=== PATIENT | female | born 1960 | race Caucasian/White ===

== ENCOUNTER 2020-07-03 08:00 | Outpatient (CLI) | payer MEDICARE, MEDICAID, SELFPAY ==
--- NOTE | 2020-07-03 08:09 | ECG_ITS ---
[facility] Test Date: 2020-07-03 Pat Name: Loyda Roldan Department: Room: Gender: Female Multigraph Operator: : 1960 Requested By: Ericka Soto Order Number: [id number] Zimmerman MD: Lori Abbott M.D. Interpretive Statements NAME OF STUDY: EXERCISE SESTAMIBI STRESS TEST INDICATION: Coronary Artery Disease, PROCEDURE: The baseline electrocardiogram showed normal sinus rhythm with some nonspecific T wave changes.. At the baseline, the patient's blood pressure was 135/81 mm Hg with a heart rate of 87. The patient exercised for 7 minutes on a standard Davion protocol. Patient attained a maximum heart rate of 154 beats per minute(94%) of the maximum predicted heart rate) with a blood pressure at the peak exercise -was not obtained. The EKG at the peak exercise revealed nonspecific ST-T changes. Patient did not have any chest pain or any significant arrhythmis with the exercise Sestamibi was injected 1 minute prior to the peak exercise During the recovery phase, there were no new changes. Blood pressure at the end of the recovery phase was 141/71 mm Hg with a heart rate of 97 per minute. CONCLUSION: 1. Nonspecific EKG changes with the [treadmill exercise 2. No exercise-induced chest pain or cardiac arrhythmia 3. Fair exercise tolerance, attained a maximum of 10.2 METs 4. Sestamibi/Sestamibi perfusion results pending; see separate report. Electronically Signed On 07-05-2020 16:03:35 CDT by Lori Abbott M.D. [id number]
--- NOTE | 2020-07-03 08:09 | NMCV_ITS ---
NM estiven perf SPECT r/s* [id number] Jamar Loyda Age: 59 Gender: F : 1960 Exam Date: 07/03/2020 09:10 Ordering Phys: Ericka Wolfe MD Technologist: DEANDRE Hernandez Exam Location: [facility] Indications: CAD STRESS TEST Please see separate stress test report in [facility] for full findings IMAGE PROTOCOL Rest/Stress 1 Exercise Day Radiopharmaceutical Dose (mCi) Administration Site Administered by Rest: Tc-99m 10.7 IV DEANDRE Hernandez Sestamibi Stress:Tc-99m 32.5 IV DEANDRE Gregory Sestamibi Rest: 03-Jul-2020 60 Discovery 630 Stress: 03-Jul-2020 45 Discovery 630 Radiopharmaceutical was injected at 85 % maximum heart rate. SPECT RESULTS Technical Quality: Good Raw Data Analysis: Breast attenuation Image Corrections: No attenuation or motion correction applied Summed Stress Score: 0 Summed Rest Score: 0 Summed Difference Score: 0 PERFUSION FINDINGS Fairly uniform myocardial tracer uptake. No significant perfusion abnormalities are noted FUNCTIONAL RESULTS (calculated via Gated SPECT) Stress Image LV EF (%): 75 Stress EDV (mL):60 TID: 0.88 Stress ESV (mL):15 FUNCTIONAL FINDINGS: Segmental wall motion analysis revealing no gross wall motion normalities. IMPRESSIONS 1. Myocardial perfusion imaging revealing uniform tracer uptake with no significant perfusion abnormalities 2. Normal LV ejection fraction 75%. 3. LV wall motion analysis revealing no gross wall motion normalities. 4. Normal LV volume. No significant coronary ischemia, based on the above findings Dr Lori Abbott MD FACC (Electronically Signed) Final Date: 03 July 2020 23:23 S
[2020-07-03 09:57] VITALS: BMI 32.0
[2020-07-03 10:19] VITALS: BP 141/71; PULSE 97
== END 2020-07-03 08:01 | disposition home or self-care (01) ==
LOC: CDL 08:06
PROVIDERS: PCP Family Medicine; Visit Provider Family Medicine
DX: I25.10 Atherosclerotic heart disease of native coronary artery without angina pectoris (principal)
CPT/HCPCS: 78452; 93017; A9500

== ENCOUNTER 2021-01-29 06:27 | Day surgery (SDC) | payer MEDICARE, MEDICAID, SELFPAY ==
[2021-01-27 10:53] VITALS: BMI 32.0
--- NOTE | 2021-01-29 06:49 | W.PM.OPSUD ---
Surgery/Procedure H&P Update DATE OF PROCEDURE: January 29, 2021 DATE H&P PERFORMED: 12/30/20 H&P UPDATE INFORMATION: I have reviewed H&P completed within last 30 days, I have examined patient prior to procedure and Changes to prior documentation as noted here CHANGES TO PREVIOUS DOCUMENTATION: Patient mentions today that she had a colonoscopy before 10 years and was reported as normal and an EGD before 4 years and was told that she has a hiatal hernia. PREOP DIAGNOSIS: Screening colonoscopy and melena PRIMARY INDICATION FOR PROCEDURE: THE SAME PLANNED PROCEDURE: Operation Date: 01/29/21 07:30 Proposed Procedures p EGD/colon 86230 [id number] K27.9 K92.1(Not Applicable) - Naif Peace MD s Colonoscopy(Not Applicable) - Naif Peace MD
[2021-01-29 06:51] VITALS: BP 120/84; PULSE 72; RESP 18; TEMP 36.2; O2SAT 98
[2021-01-29] MEDS: sodium chloride 0.9% 1,000 ML 30 ML IV (07:02)
[2021-01-29 07:06] LABS: Glucose Point of Care 134 mg/dL (70-110)
--- NOTE | 2021-01-29 07:23 | ANES.PREANE2 ---
Pre-Anesthetic Assessment Pre-Anesthetic Assessment: Height/Weight: Height 1.57 m Weight 79.379 kg Temp Pulse Resp BP Pulse Ox 97.1 F L 72 18 120/84 98 01/29/21 06:51 01/29/21 06:51 01/29/21 06:51 01/29/21 06:51 01/29/21 06:51 Preop Diagnosis: Screening colonoscopy and melena Proposed Procedure: Operation Date: 01/29/21 07:30 Proposed Procedures p EGD/colon [id number] K27.9 K92.1(Not Applicable) - Naif Peace MD s Colonoscopy(Not Applicable) - Naif Peace MD Last intake: Intake Last Liquid Date 01/28/21 Last Solid Date 01/27/21 Social: Social History: Tobacco and No alcohol Packs per day: 10/06 Exam: Pre-Anes Outpt Exam: alert Airway: Submandibular: WNL Cervical ROM: WNL MP: 4 Dentition: False Pulmonary: Pulmonary: Sleep apnea Comments: does not use cpap CV/HEM: CV/HEM: CAD and PR Comments: cabg 2007 : : None reported Hepatic: Hepatic: None reported GI: GI: GERD, Hiatus hernia and PUD Metabolic: Metabolic: DM, Hyperlipidemia and Morbid obesity Musc/skel: Musc/skel: OA/DJD Neuropsych: Neuropsych: Anxiety and Depression Anesthetic Plan: ASA status: 3 Anesthesia: Anesthesia Evaluation and MAC Risk of > 500 ml blood loss (7ml/kg in children): No Meds/Allergies Current Medications: Current Medications Generic Name Dose Route Start Last Admin Trade Name Freq PRN Reason Stop Dose Admin Sodium Chloride 1,000 mls @ 30 ml s/hr 01/29/21 06:45 01/29/21 07:02 Sodium Chloride 0.9% IV 01/30/21 06:44 30 mls/hr .Q24H CONNOR Administration PFSH Anesthesia PFSH: Medical History (Updated 01/29/21 @ 07:22 by Naif Peace MD) Colon polyp Data Anesthesia Other Labs: Laboratory Results - last 48 hr 01/29/21 07:01 POC Glucose 134 H Cardiac Studies: No Data to Display
[2021-01-29 08:02] VITALS: BP 127/74; PULSE 64; RESP 16; TEMP 36.4; O2SAT 91
--- NOTE | 2021-01-29 13:12 | ANE.PACU2 ---
Inpatient post-anesthesia follow up: Airway intact: Yes Vital signs: Temperature 97.5 F Pulse Rate 64 Respiratory Rate 16 Blood Pressure 127/74 Pulse Oximetry 91 Oxygen Delivery Me thod Room Air Oxygen Flow Rate Fraction of Inspir ed Oxygen Hydration adequate: Yes Nausea and vomiting: No Pain level: 2 Mental status: Baseline
[2021-01-30 06:47] LABS: H. Pylori / CLO Test Negative
== END 2021-01-29 08:50 | disposition home or self-care (01) ==
PROVIDERS: PCP Family Medicine; Visit Provider Surgery
PROC: 0DJD8ZZ Inspection of Lower Intestinal Tract, Via Natural or Artificial Opening Endoscopic (ICD-10-PCS; CPT 45378; 2021-01-29 07:30)
PROC: 0DJ08ZZ Inspection of Upper Intestinal Tract, Via Natural or Artificial Opening Endoscopic (ICD-10-PCS; CPT 43235; 2021-01-29 07:30)
DX: K92.1 Melena (principal); K21.00 Gastro-esophageal reflux disease with esophagitis, without bleeding; K29.70 Gastritis, unspecified, without bleeding; F17.210 Nicotine dependence, cigarettes, uncomplicated; I25.10 Atherosclerotic heart disease of native coronary artery without angina pectoris; I25.2 Old myocardial infarction; Z95.1 Presence of aortocoronary bypass graft; Z87.11 Personal history of peptic ulcer disease; E78.5 Hyperlipidemia, unspecified; E66.01 Morbid (severe) obesity due to excess calories; Z68.32 Body mass index [BMI] 32.0-32.9, adult; M19.90 Unspecified osteoarthritis, unspecified site; F41.9 Anxiety disorder, unspecified; F32.9 Major depressive disorder, single episode, unspecified
CPT/HCPCS: 36416; 43239; 45378; 82962; 87077; 96360; 96361; J2704; J7030

== ENCOUNTER 2021-06-23 08:32 | Outpatient (CLI) | payer MEDICARE, MEDICAID, SELFPAY ==
--- NOTE | 2021-06-23 08:48 | MM_ITS ---
WS: [id number] BILATERAL SCREENING DIGITAL MAMMOGRAM WITH CAD HISTORY: SCREENING COMPARISON: 07/05/2014 and 08/18/2012 Bilateral CC and MLO views submitted. Computer aided detection analyzed. Breast composition: There are scattered areas of fibroglandular density. No suspicious masses, microc alcifications or architectural distortion. Benign lymph node upper outer quadrant LEFT breast is stab le. MM/[place] [id number] IMPRESSION: BI-RADS: 2-Benign FOLLOW UP: 1 Year Follow-up
== END 2021-06-23 08:33 | disposition home or self-care (01) ==
LOC: RADSHAW 08:36
PROVIDERS: PCP Family Medicine; Visit Provider Family Medicine
DX: Z12.31 Encounter for screening mammogram for malignant neoplasm of breast (principal)
CPT/HCPCS: 77067

== ENCOUNTER 2023-10-01 08:10 | Outpatient (CLI) | payer MEDICARE, MEDICAID, SELFPAY ==
--- NOTE | 2023-10-01 08:19 | MM_ITS ---
WS: [id number] BILATERAL 3D TOMOSYNTHESIS DIGITAL SCREENING MAMMOGRAPHY WITH CAD CLINICAL INFORMATION: SCREENING HISTORY: Screening mammogram. No current complaints. COMPARISON: 2020 TECHNIQUE: Bilateral CC and MLO views. FINDINGS: Scattered fibroglandular densities bilaterally. No suspicious focal mass, asymmetry, calcifications, or architectural distortion. No evidence of malignancy. Punctate and lucent centered calcifications. IMPRESSION: MM/[place] [id number] BI-RADS: 2-Benign FOLLOW UP: 1 Year Follow-up Recommend return to annual screening mammography.
== END 2023-10-01 08:11 | disposition home or self-care (01) ==
LOC: RAD 08:11
PROVIDERS: PCP Family Medicine; Visit Provider Family Medicine
DX: Z12.31 Encounter for screening mammogram for malignant neoplasm of breast (principal)
CPT/HCPCS: 77063; 77067

== ENCOUNTER 2024-05-11 09:07 | Outpatient (CLI) | payer MEDICARE, MEDICAID, SELFPAY ==
--- NOTE | 2024-05-11 09:13 | US_ITS ---
WS: [id number] RIGHT UPPER QUADRANT ULTRASOUND HISTORY: RUQ PAIN COMPARISON: 10/05/2013 Liver: 12.4 cm in length. Normal size liver and echogenicity. No bile duct dilatation or mass. Portal Vein: Normal hepatopetal flow with monophasic waveform. Gallbladder: Prior cholecystectomy. CBD: 0.5 cm Pancreas: Completely obscured. Right kidney: 8.5 cm in length. Low normal size kidney. No obstruction or mass. Aorta and IVC: Not visualized. No ascites. US/US abdomen limited [id number] IMPRESSION: 1. Technically limited and difficult RIGHT upper quadrant ultrasound evaluatio n due to body habitus. 2. Prior cholecystectomy. 3. Negative liver. 4. No bile duct dilatation.
== END 2024-05-11 09:08 | disposition home or self-care (01) ==
LOC: RAD 09:07
PROVIDERS: PCP Family Medicine; Visit Provider Family Medicine
DX: R10.11 Right upper quadrant pain (principal); Z98.890 Other specified postprocedural states
CPT/HCPCS: 76705

== ENCOUNTER 2024-05-24 07:34 | Outpatient (CLI) | payer MEDICARE, MEDICAID, SELFPAY ==
--- NOTE | 2024-05-24 07:42 | CT_ITS ---
WS: [id number] CT ABDOMEN AND PELVIS WITH CONTRAST HISTORY: RUQ PAIN/HX:CHOLECYSTECTOMY TECHNIQUE: Imaging performed of the abdomen and pelvis with IV contrast. Single phase imaging of the abdomen. Coronal and sagittal reformats are submitted. All CT scans at [facility] use at [address] one of these dose optimization techniques: automated exposure control; mA and/or kV adjustment per patient size (includes targeted exams where dose is matched to clinical indication); or iterative re construction. IV CONTRAST: Omnipaque 350; 100 mL IV. Oral contrast: Yes. DLP: 398.52 mGy.cm COMPARISON: 10/04/2018, 05/11/2024 Lower thorax: Lung bases are clear. Heart is normal size. No hiatal hernia. Liver/biliary system: Normal size with no intrahepatic dilatation. There is a large calcified density abutting the inferomedial RIGHT lobe of the liver which has been present since at least 2019. Normal portal vein. Gallbladder: Status post cholecystectomy. Pancreas: Normal size pancreas and pancreatic duct. No adjacent inflammation. Spleen: Normal size spleen. No mass or infarct. Adrenal glands: RIGHT adrenal myelolipoma measures 2.7 x 2.9 cm and is stable. Negative LEFT adrenal gland. Right kidney: Normal. Left kidney: Normal. Aorta: Moderate atherosclerosis with no aneurysm. Scattered atherosclerotic plaque with luminal throm bus. Mild stenosis distal aorta. Calcification continues into the common iliac arteries. Calcified pl aque at the origin of the SMA and celiac axis. Mild component of stenosis at the SMA. Stenosis has pr ogressed since 2019 at the SMA origin. Lymphadenopathy: None. Free fluid: None. GI tract: Stomach is markedly distended with oral contrast. There is no small bowel obstruction. Norm al appendix. Slight increased fluid in the ascending colon. No colitis. Minimal diverticular disease. Abdominal wall: Unremarkable abdominal wall. No hernia. Pelvis: Prior hysterectomy. No free fluid or adenopathy. Minimally distended urinary bladder. Bones: No destructive bone lesions. CT/CT abdomen pelvis w con* [id number] IMPRESSION: 1. Prior cholecystectomy. 2. No intrahepatic duct dilatation. 3. Long-term stability dense calcification along the inferior medial RIGHT lob e of the liver. 4. Normal appendix. 5. Moderate atherosclerosis aorta with a component of stenosis which has progr essed since 2019 at the base of the SMA. Patient is at risk for mild GI ischemi a. 6. No ascites or adenopathy. 7. RIGHT adrenal myelolipoma. Stable since 2019.
[2024-05-24] MEDS: iohexol 350 mg/mL 500 mL Btl (per mL) PO (09:06)
[2024-05-24] MEDS: iohexol 350 mg/mL 500 mL Btl (per mL) IV (09:06)
== END 2024-05-24 07:35 | disposition home or self-care (01) ==
LOC: RAD 07:34
PROVIDERS: PCP Family Medicine; Visit Provider Family Medicine
DX: R10.11 Right upper quadrant pain (principal); D35.01 Benign neoplasm of right adrenal gland; K76.89 Other specified diseases of liver; I70.0 Atherosclerosis of aorta; I70.8 Atherosclerosis of other arteries; Z90.49 Acquired absence of other specified parts of digestive tract
CPT/HCPCS: 74177; Q9967

== ENCOUNTER 2024-06-08 07:27 | Outpatient (CLI) | payer MEDICARE, MEDICAID, SELFPAY ==
--- NOTE | 2024-06-08 07:31 | CT_ITS ---
WS: [id number] CT ANGIOGRAPHY abdomen and pelvis HISTORY: ATHEROSCLEROSIS OF AORTA/ABD PAIN TECHNIQUE: CT angiogram is performed during IV injection. Reformation images reviewed. All CT scans a [facility] use at least one of these dose optimization techniques: automated exposure contro l; mA and/or kV adjustment per patient size (includes targeted exams where dose is matched to clinica l indication); or iterative reconstruction. CONTRAST: Omnipaque 350; 100 mL IV. DLP: 410.70 mGy.cm COMPARISON: 05/24/2024, 10/04/2018 Lung bases are clear. Normal size heart. Abdominal aorta: Mild diffuse atherosclerotic plaque throughout the aorta. Focal areas of intimal thi ckening are also identified. Saccular aneurysm in the infrarenal aorta. There is very mild anterior b ulging of the aorta but the diameter of the aorta still remains normal at 2.0 cm. Extensive atheroscl erotic plaque continues to the aortic bifurcation. Atherosclerotic plaque into the iliac arteries. No high-grade stenosis or occlusion. Very mild atherosclerotic plaque at the origin of the celiac axis. Gastric and splenic arteries are n ormal. Calcification at the origin of the SMA. The stenosis is not as significant as seen on the prio r CT. KEYANA is still patent. Prior cholecystectomy. Early enhancement of the liver and spleen, pancreas and gallbladder are negati ve. Common bile duct is normal size. There is a previously described calcification along the RIGHT he patic lobe. Kidneys are enhancing normally. No renal obstruction. Stable RIGHT adrenal myelolipoma. N egative LEFT adrenal gland. No GI tract obstruction. Normal appendix. No adenopathy or ascites. Negative urinary bladder. Mild an terior wedging of T12. No destructive bone lesions. CT/CT angio abdomen pelvis [id number] IMPRESSION: 1. Moderate atherosclerosis abdominal aorta. There is a very small saccular an eurysm in the infrarenal aorta. Mild bulging of the anterior wall of the aorta. 2. Small amount of plaque at the origins of the celiac axis and SMA. The steno sis at the SMA is not as great as previously noted on the CT from 05/24/2024. CT angiogram evaluation demonstrates stenosis of approximately 30 to 40%. There i s still good arterial flow noted distal to the origin of the SMA. 3. Stable RIGHT adrenal myolipoma. 4. No ischemic changes in the GI tract.
[2024-06-08] MEDS: iohexol 350 mg/mL 500 mL Btl (per mL) IV (08:41)
== END 2024-06-08 07:28 | disposition home or self-care (01) ==
LOC: RAD 07:27
PROVIDERS: PCP Family Medicine; Visit Provider Family Medicine
DX: I70.0 Atherosclerosis of aorta (principal); R10.9 Unspecified abdominal pain; I71.43 Infrarenal abdominal aortic aneurysm, without rupture; D35.00 Benign neoplasm of unspecified adrenal gland; Z90.49 Acquired absence of other specified parts of digestive tract; K76.9 Liver disease, unspecified
CPT/HCPCS: 74174

== ENCOUNTER 2024-08-12 09:49 | Inpatient (IN) | payer MEDICARE, MEDICAID, SELFPAY ==
[2024-08-12] VITALS (15 sets, daily range): BP systolic 102–148; BP diastolic 57–92; PULSE 68–83; RESP 9–18; TEMP 36.5–36.8; O2SAT 92–99; BMI 28.9
--- NOTE | 2024-08-12 09:56 | CTR_ITS ---
PROCEDURE INFORMATION: Exam: CT Lumbar Spine Without Contrast Exam date and time: 08/12/2024 10:26 AM Age: 63 years old Clinical indication: Injury or trauma; Fall; Blunt trauma (contusions or hematomas) TECHNIQUE: Imaging protocol: Computed tomography of the lumbar spine without contrast. Radiation optimization: All CT scans at this facility use at least one of these dose optimization techniques: automated exposure control; mA and/or kV adjustment per patient size (includes targeted exams where dose is matched to clinical indication); or iterative reconstruction. COMPARISON: CT angio abdomen pelvis [id number] 06/08/2024 8:19 AM RADIATION DOSE METRICS: Total DLP (mGy-cm): 598.77 FINDINGS: Bones/joints: Mild degenerative disease of bilateral sacroiliac joints. Mild curvature of the lumbar spine convex to the left. No compression deformity. No spondylolisthesis. No acute fracture. At L4-L5, there is a diffuse disc bulge with superimposed left paracentral disc protrusion and bilateral ligamentum flavum hypertrophy causing moderate to severe thecal sac compression and moderate narrowing of bilateral neural foramina. Vasculature: Vascular calcifications. Soft tissues: Unremarkable. CT/CT lumbar spine wo con* [id number] IMPRESSION: 1. No acute fracture or dislocation. 2. Disc bulge with left paracentral protrusion at L4-L5 causing moderate to severe thecal sac compression moderate narrowing of bilateral neural foramina.
--- NOTE | 2024-08-12 10:12 | CTR_ITS ---
PROCEDURE INFORMATION: Exam: CT Head Without Contrast Exam date and time: 08/12/2024 10:21 AM Age: 63 years old Clinical indication: Stroke-like symptoms; Dizziness/giddiness; Additional info: Symptoms of acute stroke TECHNIQUE: Imaging protocol: Computed tomography of the head without contrast. Radiation optimization: All CT scans at this facility use at least one of these dose optimization techniques: automated exposure control; mA and/or kV adjustment per patient size (includes targeted exams where dose is matched to clinical indication); or iterative reconstruction. Other technique: STROKE PROTOCOL was implemented. COMPARISON: No relevant prior studies available. RADIATION DOSE METRICS: Total DLP (mGy-cm): 1159.9 FINDINGS: Brain: No intracranial hemorrhage. Mild central and cortical atrophy. Prominent perivascular space versus old left basal ganglia area infarct. Cerebral ventricles: No ventriculomegaly. Paranasal sinuses: Mucous membrane thickening in the maxillary sinuses with a questioned polyp persists on the left. Mastoid air cells: Visualized mastoid air cells are well aerated. Bones: Unremarkable. No acute fracture. Soft tissues: Unremarkable. CT/CT head thrombolytic [id number] IMPRESSION: No evidence of an acute abnormality. No intracranial hemorrhage. ASSESSMENT: ASPECTS ([facility] Stroke Program Early CT Score) is 10.
[2024-08-12 10:13] LABS: Basophils % 0.6 %; Eosinophils # 0.1 10^3/uL (0.0-0.8); Eosinophils % 1.5 %; Lymphocytes # 1.5 10^3/uL (0.8-4.8); Lymphocytes % 30.8 %; Mean Corpuscular HGB Conc 32.1 g/dL (30-55); Mean Corpuscular Hemoglobin 28.7 pg (27-33); Mean Corpuscular Volume 89.4 fl (85-98); Mean Platelet Volume 11.9 fL (7.4-10.4); Monocytes # 0.5 10^3/uL (0.2-0.9); Neutrophils # 2.73 10^3/uL (1.8-7.7); Neutrophils % 56.9 %; Nucleated Red Blood Cells % 0 %; Platelet Count 229 10^3/cmm (157-399); Red Blood Count 4.81 10^6/uL (3.85-5.65); Red Cell Distribution Width 13.2 % (12.1-15.1)
--- NOTE | 2024-08-12 10:13 | CTR_ITS ---
PROCEDURE INFORMATION: Exam: CT Cervical Spine Without Contrast Exam date and time: 08/12/2024 10:21 AM Age: 63 years old Clinical indication: Injury or trauma; Fall; Blunt trauma TECHNIQUE: Imaging protocol: Computed tomography of the cervical spine without contrast. Radiation optimization: All CT scans at this facility use at least one of these dose optimization techniques: automated exposure control; mA and/or kV adjustment per patient size (includes targeted exams where dose is matched to clinical indication); or iterative reconstruction. COMPARISON: CT head thrombolytic [id number] 08/12/2024 10:21 AM RADIATION DOSE METRICS: Total DLP (mGy-cm): 1099 FINDINGS: Bones: No acute fracture. Normal alignment. No significant disc bulge or herniation. No severe spinal canal stenosis. No significant neural foraminal narrowing. Lungs: Lung apices are normal. Soft tissues: Unremarkable. CT/CT cervical spin wo con* [id number] IMPRESSION: No acute findings.
[2024-08-12 10:34] LABS: Alanine Aminotransferase 7 U/L (0-33); Albumin Level 4.5 g/dL (3.5-5.2); Alkaline Phosphatase 82 U/L (35-105); Anion Gap 13.2 (5-19); Aspartate Amino Transferase 17 U/L (0-32); Blood Urea Nitrogen 6 mg/dL (8-23); Calcium 9.6 mg/dL (8.5-10.5); Carbon Dioxide 29 mmol/L (22-29); Chloride 97 mmol/L (98-107); Creatinine Clr Calc Pharmacy 54.7713; Glomerular Filtration Rate 56.4 mL/min (90-130); Glucose 96 mg/dL (65-115); Osmolality Calculated 277 mOsm/kg (285-295); Potassium 4.2 mmol/L (3.5-5.1); Sodium 135 mmol/L (136-145); Total Bilirubin 1.1 mg/dL (0.15-1.2); Total Protein 7.5 g/dL (6.6-8.7)
[2024-08-12 10:35] LABS: Glucose Point of Care 83 mg/dL (70-110)
[2024-08-12 10:40] LABS: INR 1.04 (0.8-1.2)
[2024-08-12 10:41] LABS: Partial Thromboplastin Time 26.5 SECONDS (23.9-36.7)
--- NOTE | 2024-08-12 11:06 | W.ED.DIZZY ---
HPI - Dizziness General: Chief Complaint: Dizziness Stated Complaint: Dizziness, back injury - Fall Time Seen by Provider: 08/12/24 09:55 History of Present Illness: HPI Narrative: 63-year-old female presents emergency room complaining of falling off a ladder yesterday and injured her back. In addition to this she states she is always dizzy. She woke up this morning more dizzy than usual states she is fallen about 6 times. She cannot walk because of her dizziness morning which is very unusual for her. She also seem to have a little bit of difficulty expressing words at times more word finding issues. Last known well will be 9-10 o'clock last night. Associated symptoms: Denies chest pain or chills Related Data Home Medications Medication Instructions Recorded Confirmed citalopram 10 mg tablet 10 mg PO DAILY 12/30/20 08/12/24 ezetimibe 10 mg tablet 10 mg PO DAILY 12/30/20 08/12/24 gabapentin 300 mg capsule 300 mg PO DAILY 12/30/20 08/12/24 isosorbide mononitrate 60 mg 60 mg PO BID 12/30/20 08/12/24 tablet,extended release 24 hr metoprolol tartrate 100 mg tablet 100 mg PO BID 12/30/20 08/12/24 nitroglycerin 0.4 mg sublingual 0.4 mg sublingual Q5M PRN Chest 12/30/20 08/12/24 tablet Pain potassium chloride 10 mEq 10 meq PO BID 12/30/20 08/12/24 capsule,extended release rosuvastatin 10 mg tablet 10 mg PO DAILY 12/30/20 08/12/24 spironolactone 25 mg tablet 25 mg PO DAILY 12/30/20 08/12/24 aspirin 325 mg tablet (Tanya 325 mg PO DAILY 08/12/24 08/12/24 Aspirin) celecoxib 200 mg capsule 200 mg PO DAILY 08/12/24 08/12/24 clopidogrel 75 mg tablet 75 mg PO DAILY 08/12/24 08/12/24 semaglutide 2 mg/dose (8 mg/3 mL) 2 mg SUBCUT Q7D 08/12/24 08/12/24 subcutaneous pen injector (Ozempic) Allergies Allergy/AdvReac Type Severity Reaction Status Date / Time codeine Allergy Severe ADR-Chest Verified 02/14/21 14:27 Pain egg Allergy Severe ADR-Vomitin Verified 02/14/21 14:27 g morphine Allergy Severe Unconscious Verified 02/14/21 14:27 tramadol Allergy Severe ALGY-Rash Verified 02/14/21 14:27 Review of Systems Const: Denies: fever(s) or chills Card: Denies: chest pain Resp: Denies: dyspnea GI: Denies: abdominal pain : Denies: dysuria, urinary frequency or urinary urgency Musc: Denies: neck pain or back pain Skin/Breast: Denies: rash PFSH ED PFSH: Medical History Colon polyp Melena Encounter for screening colonoscopy Physical Exam Const: COMMON NORMALS: no acute distress GENERAL APPEARANCE: cooperative and comfortable ORIENTATION/CONSCIOUSNESS: Yes awake, Yes oriented to person, Yes oriented to place and Yes oriented to time HENMT: COMMON NORMALS: normocephalic, atraumatic and hearing grossly normal bilaterally HEAD & SCALP: normocephalic and atraumatic Resp: COMMON NORMALS: normal respiratory effort, No retractions, No use of accessory muscles and clear to auscultation bilaterally AUSCULTATION: clear to auscultation bilaterally Cardio: COMMON NORMALS: regular rate, regular rhythm and No murmurs present (Cardio) RATE: regular rate RHYTHM: regular rhythm GI: COMMON NORMALS: Soft to palpation and No hepatosplenomegaly present AUSCULTATION: Yes normoactive bowel sounds PALPATION: Yes Soft to palpation, No Tenderness to palpation present (GI), No Guarding due to palpation present (GI) and Yes No hepatosplenomegaly present Extremity: COMMON NORMALS: normal to inspection, capillary refill normal, no clubbing, cyanosis or edema, no calf tenderness and no pedal edema Neuro: SENSORIUM/ORIENTATION: Yes oriented to person, Yes oriented to place and Yes oriented to time Skin: COMMON NORMALS: no rashes or lesions noted GENERAL SKIN EXAM: no rashes or lesions noted Course Vital Signs: Vital signs: Vital Signs Pulse Rate 72 08/12/24 10:45 Respiratory Rate 13 08/12/24 10:45 Blood Pressure 148/92 08/12/24 09:58 Pulse Oximetry 99 08/12/24 10:45 MDM - Dizziness Medical Decision Making Patient still with significant dizziness and balance problems. She has had this before but is worse now. She does not have anything acute on her head CT she has had several vascular issues she has significant risk factors are concerned she may be having a posterior stroke she is outside the window for any kind of treatment. Her NIH score is 0 however NIH does not score well for posterior. Discussed with hospitalist will admit Lab Data 08/12/24 10:08 08/12/24 10:08 Radiology Impressions Lumbar Spine CT 08/12/24 09:56 IMPRESSION: 1. No acute fracture or dislocation. 2. Disc bulge with left paracentral protrusion at L4-L5 causing moderate to severe thecal sac compression moderate narrowing of bilateral neural foramina. Head CT 08/12/24 10:12 IMPRESSION: No evidence of an acute abnormality. No intracranial hemorrhage. ASSESSMENT: ASPECTS ([place] Stroke Program Early CT Score) is 10. Cervical Spine CT 08/12/24 10:13 IMPRESSION: No acute findings. Laboratory Results WBC 4.80 10^3/uL (3.29-11.43) 08/12/24 10:08 RBC 4.81 10^6/uL (3.85-5.65) 08/12/24 10:08 Hgb 13.80 g/dL (11.27-16.99) 08/12/24 10:08 Hct 43.0 % (36-47) 08/12/24 10:08 MCV 89.4 fl (85-98) 08/12/24 10:08 MCH 28.7 pg (27-33) 08/12/24 10:08 MCHC 32.1 g/dL (30-55) 08/12/24 10:08 RDW 13.2 % (12.1-15.1) 08/12/24 10:08 Plt Count 229 10^3/cmm (157-399) 08/12/24 10:08 MPV 11.9 fL (7.4-10.4) H 08/12/24 10:08 Neut % (Auto) 56.9 % 08/12/24 10:08 Lymph % (Auto) 30.8 % 08/12/24 10:08 [place] % (Auto) 10.0 % 08/12/24 10:08 Eos % (Auto) 1.5 % 08/12/24 10:08 Baso % (Auto) 0.6 % 08/12/24 10:08 Neut # (Auto) 2.73 10^3/uL (1.8-7.7) 08/12/24 10:08 Lymph # (Auto) 1.5 10^3/uL (0.8-4.8) 08/12/24 10:08 [place] # (Auto) 0.5 10^3/uL (0.2-0.9) 08/12/24 10:08 Eos # (Auto) 0.1 10^3/uL (0.0-0.8) 08/12/24 10:08 Baso # (Auto) 0.0 10^3/uL (0.0-0.1) 08/12/24 10:08 Nucleated RBC % (auto) 0 % 08/12/24 10:08 Nucleated RBCs # 0.0 /100WBC 08/12/24 10:08 PT 13.90 SECONDS (12.1-14.9) 08/12/24 10:08 INR 1.04 (0.8-1.2) 08/12/24 10:08 APTT 26.5 SECONDS (23.9-36.7) 08/12/24 10:08 Sodium 135 mmol/L (136-145) L 08/12/24 10:08 Potassium 4.2 mmol/L (3.5-5.1) 08/12/24 10:08 Chloride 97 mmol/L (98-107) L 08/12/24 10:08 Carbon Dioxide 29 mmol/L (22-29) 08/12/24 10:08 Anion Gap 13.2 (5-19) 08/12/24 10:08 BUN 6 mg/dL (8-23) L 08/12/24 10:08 Creatinine 1.0 mg/dL (0.5-0.9) H 08/12/24 10:08 GFR Calculation 56.4 mL/min (90-130) L 08/12/24 10:08 Glucose 96 mg/dL (65-115) 08/12/24 10:08 POC Glucose 83 mg/dL (70-110) 08/12/24 10:31 Calculated Osmolality 277 mOsm/kg (285-295) L 08/12/24 10:08 Calcium 9.6 mg/dL (8.5-10.5) 08/12/24 10:08 Total Bilirubin 1.1 mg/dL (0.15-1.2) 08/12/24 10:08 AST 17 U/L (0-32) 08/12/24 10:08 ALT 7 U/L (0-33) 08/12/24 10:08 Alkaline Phosphatase 82 U/L (35-105) 08/12/24 10:08 Total Protein 7.5 g/dL (6.6-8.7) 08/12/24 10:08 Albumin 4.5 g/dL (3.5-5.2) 08/12/24 10:08 Globulin 3.0 g/dL (1.3-4.6) 08/12/24 10:08 All radiology interpretation(s) finalized by discharge Discharge Plan Discharge Patient Disposition: Admitted As Inpatient Admit Provider: Eve Gonzales Clinical Impression: Posterior circulation stroke Condition: Stable Coding Level of Care Code ED Electromechanical Engineer for Raeann Farah NIH stroke score NIHSS Level Of Consciousness - 1a: 0 Level Of Consciousness Questions - 1b: Both Correct Level Of Consciousness Commands - 1c: Both Correct Best Gaze - 2: Normal Visual Miller - 3: No Visual Loss Facial Palsy - 4: Normal Motor Arm Right - 5: No Drift Motor Arm Left - 5: No Drift Motor Leg Right - 6: No Drift Motor Leg Left - 6: No Drift Limb Ataxia - 7: Absent Sensory - 8: Normal Best Language - 9: No Aphasia Dysarthia - 10: Normal Extinction And Inattention - 11: 0 Score Total Score: 0
[2024-08-12] MEDS: LORazepam 2 mg/mL INJ 1 mL 1 MG IVP (11:17)
[2024-08-12] MEDS: aspirin 81 mg Chew Tablet 324 MG PO (11:17)
[2024-08-12] MEDS: sodium chloride 0.9% 1,000 ML 100 ML IV ×2 (11:46→23:41)
--- NOTE | 2024-08-12 12:23 | P.HP_ITS ---
Providers/Chief Complaint 2 Primary Care Provider: Ercika Wolfe MD Chief Complaint: Dizziness, back injury - Fall History of Present Illness Loyda Roldan is a 63 year old female with past medical history of coronary disease status post PCI, in-stent restenosis status post repeat PCI, history of CABG, hyperlipidemia, diabetes mellitus, ex-smoker, history of dizziness who presented to the hospital today with complaint of dizziness that started worsening since last night. She states he normally has dizziness at baseline however this morning it was worse and she has had constant feeling of being dizzy. She also has been having frequent falls lately secondary to being dizzy. Denies losing consciousness or hitting her head. Fell off the ladder yesterday which was a mechanical fall. Denies nausea vomiting diarrhea constipation chest pain shortness of breath at this time. Says took her all her home medications checkroom attendant today. ER course: CT head did not show a stroke. CTA head and neck obtained which showed distal vertebral artery severe stenosis. Telestroke service was contacted and patient was seen at the bedside. Recommendations as follows. Continue current home medications. Increase Crestor to 40 daily. Check MRI brain PT OT, echo Patient quite upset with her diagnosis. Spent time with her and explained to her what was going on. She was upset that we told her she had a stroke however needed an MRI to confirm. Family present at bedside. Generally patient is cooperative. Discussed plan with her in detail. Medications/Allergies Home Medications Medication Instructions Recorded Confirmed Last Taken Type citalopram 10 mg tablet 10 mg PO DAILY 12/30/20 08/12/24 08/12/24 History ezetimibe 10 mg tablet 10 mg PO DAILY 12/30/20 08/12/24 08/11/24 History gabapentin 300 mg capsule 300 mg PO DAILY 12/30/20 08/12/24 08/12/24 History isosorbide mononitrate 60 mg 60 mg PO BID 12/30/20 08/12/24 08/12/24 History tablet,extended release 24 hr metoprolol tartrate 100 mg tablet 100 mg PO BID 12/30/20 08/12/24 08/12/24 History nitroglycerin 0.4 mg sublingual 0.4 mg sublingual Q5M PRN Chest 12/30/20 08/12/24 01/28/21 History tablet Pain potassium chloride 10 mEq 10 meq PO BID 12/30/20 08/12/24 08/12/24 History capsule,extended release rosuvastatin 10 mg tablet 10 mg PO DAILY 12/30/20 08/12/24 08/12/24 History spironolactone 25 mg tablet 25 mg PO DAILY 12/30/20 08/12/24 08/12/24 History aspirin 325 mg tablet (Tanya 325 mg PO DAILY 08/12/24 08/12/24 08/12/24 History Aspirin) celecoxib 200 mg capsule 200 mg PO DAILY 08/12/24 08/12/24 08/12/24 History clopidogrel 75 mg tablet 75 mg PO DAILY 08/12/24 08/12/24 08/12/24 History semaglutide 2 mg/dose (8 mg/3 mL) 2 mg SUBCUT Q7D 08/12/24 08/12/24 08/07/24 History subcutaneous pen injector (Ozempic) Allergies Allergy/AdvReac Type Severity Reaction Status Date / Time codeine Allergy Severe ADR-Chest Verified 02/14/21 14:27 Pain egg Allergy Severe ADR-Vomitin Verified 02/14/21 14:27 g morphine Allergy Severe Unconscious Verified 02/14/21 14:27 tramadol Allergy Severe ALGY-Rash Verified 02/14/21 14:27 PFSH Acute 2 PFSH: Medical History (Updated 08/12/24 @ 14:29 by Eve Gonzales MD) COPD (chronic obstructive pulmonary disease) CAD (coronary artery disease) Colon polyp Melena Encounter for screening colonoscopy Vitals/I&O/Wt Last Vital Signs Pulse 72 08/12/24 10:45 Resp 13 08/12/24 10:45 BP 148/92 08/12/24 09:58 Pulse Ox 99 08/12/24 10:45 Weight last 48 hrs Weight 71.668 kg Physical Exam 2 Narrative: General: Alert oriented x3, patient seen laying in bed appearing comfortable at this time. HEENT: Normocephalic, atraumatic, EOMI, room air. Cardio: Regular rate rhythm, normal S1-S2, Respiratory: Good bilateral air entry, no wheezes no rhonchi appreciated GI: Abdomen soft, nontender, nondistended, bowel sounds + Extremities: No edema bilateral extremities Neuro: Cranial 2-12 intact, NIH 0. [id number] slightly impaired. No upper or lower extremity drift noted. Symmetrical strength. Data 08/12/24 10:08 08/12/24 10:08 A&P Assessment and plan (1) Posterior circulation stroke: (2) S/P CABG x 2: (3) GERD (gastroesophageal reflux disease): (4) Hyperlipidemia: (5) Ex-smoker: (6) Diabetes mellitus: Plan #Posterior circulation stroke #CAD status post PCI, history of CABG #Hyperlipidemia #Diabetes mellitus type 2 Allow permissive hypertension ? Continue aspirin Plavix Zetia, rosuvastatin Hold Imdur, metoprolol with heart rate Continue citalopram celecoxib ? PT OT Check echo ? Check MRI brain without contrast ? Patient does have vertebral artery stenosis. No intervention recommended at this time by neurology ? Follow-up with neurology as an outpatient after discharge Discussed with nursing staff, neurology telestroke service in detail. Greater than 30 minutes were spent in the room with the patient counseling her and I was present during telestroke consult in the room as well. Discussed with specialist in detail. Family updated at bedside. Full code DVT prophylaxis: Heparin subcu twice daily Attestations 2 Medical Necessity Statement*: Observation admission. Expect less than 48-hour stay. Diagnoses Posterior circulation stroke I63.50 S/P CABG x 2 Z95.1 GERD (gastroesophageal reflux disease) K21.9 Hyperlipidemia E78.5 Ex-smoker Z87.891 Diabetes mellitus E11.9
[2024-08-12 12:30] LABS: Bilirubin Urine Negative (Negative); Blood Urine Negative (Negative); Glucose Urine UA Negative (Normal); Ketones Urine Negative (Negative); Leukocyte Esterase Urine 1+ (Negative); Nitrate Urine Negative (Negative); Protein Urine Negative (Negative); Specific Gravity, Urine 1.008 (1.005-1.030); Urine Appearance Clear (CLEAR); Urine Color Yellow (Yellow)
--- NOTE | 2024-08-12 12:30 | CTR_ITS ---
PROCEDURE INFORMATION: Exam: CTA Head With Contrast, Arteriography Exam date and time: 08/12/2024 12:42 PM Age: 63 years old Clinical indication: Dizziness and giddiness; Additional info: Stroke? TECHNIQUE: Imaging protocol: Computed tomographic angiography of the head with contrast. Exam focused on the arteries. 3D rendering (Not supervised by radiologist): MIP and/or 3D reconstructed images were created by the technologist. Radiation optimization: All CT scans at this facility use at least one of these dose optimization techniques: automated exposure control; mA and/or kV adjustment per patient size (includes targeted exams where dose is matched to clinical indication); or iterative reconstruction. Contrast material: OMNI 350; Contrast volume: 100 ml; Contrast route: INTRAVENOUS (IV); COMPARISON: CT head thrombolytic [id number] 08/12/2024 10:21 AM RADIATION DOSE METRICS: Total DLP (mGy-cm): 467.78 FINDINGS: ANTERIOR CIRCULATION: Right internal carotid artery: Intracranial segment is patent with no significant stenosis. No aneurysm. Right middle cerebral artery: No occlusion or significant stenosis. No aneurysm. Right anterior cerebral artery: No occlusion or significant stenosis. No aneurysm. Left internal carotid artery: Intracranial segment is patent with no significant stenosis. No aneurysm. Left middle cerebral artery: No occlusion or significant stenosis. No aneurysm. Left anterior cerebral artery: No occlusion or significant stenosis. No aneurysm. POSTERIOR CIRCULATION: Right vertebral artery: Severe stenosis distal right vertebral artery image and . The distal right vertebral artery has cerebellar branches with a small thin branch hoping to supply the basilar artery. Left vertebral artery: No occlusion or significant stenosis. No aneurysm. Basilar artery: See Right vertebral artery finding. Right posterior cerebral artery: No occlusion or significant stenosis. No aneurysm. Left posterior cerebral artery: No occlusion or significant stenosis. No aneurysm. Brain: No abnormal enhancement. Cerebral ventricles: No ventriculomegaly. Paranasal sinuses: Mild mucous membrane thickening in both maxillary sinuses with a polyp or cyst in the left. Disease in the right sphenoid sinus. Bones/joints: Unremarkable. No acute fracture. Soft tissues: Unremarkable. PROCEDURE INFORMATION: Exam: CTA Neck With Contrast Exam date and time: 08/12/2024 12:42 PM Age: 63 years old Clinical indication: Dizziness and giddiness; Additional info: Stroke? TECHNIQUE: Imaging protocol: Computed tomographic angiography of the neck with contrast. Exam focused on the cervical segments of the vasculature. 3D rendering (Not supervised by radiologist): MIP and/or 3D reconstructed images were created by the technologist. Radiation optimization: All CT scans at this facility use at least one of these dose optimization techniques: automated exposure control; mA and/or kV adjustment per patient size (includes targeted exams where dose is matched to clinical indication); or iterative reconstruction. Contrast material: OMNI 350; Contrast volume: 100 ml; Contrast route: INTRAVENOUS (IV); COMPARISON: CT cervical spin wo con* [id number] 08/12/2024 10:21 AM RADIATION DOSE METRICS: Total DLP (mGy-cm): 467.78 FINDINGS: Right common carotid artery: No stenosis. No dissection or occlusion. Right internal carotid artery: Moderate stenosis proximal right internal carotid artery at 50-60% stenosis. Right external carotid artery: No occlusion or stenosis of the origin. Left common carotid artery: No stenosis. No dissection or occlusion. Left internal carotid artery: Atherosclerotic disease with less than 50% stenosis involving the proximal left internal carotid artery. Left external carotid artery: No occlusion or stenosis of the origin. Right vertebral artery: No stenosis. No dissection or occlusion. Left vertebral artery: No stenosis. No dissection or occlusion. Soft tissues: Normal. No significant soft tissue swelling. Bones/joints: Sternal sutures. CT/CT angio headneck* [id number] IMPRESSION: Severe stenosis involving the distal right vertebral artery. This does appear to be the main supply of the basilar artery. IMPRESSION: Moderate right proximal internal carotid artery stenosis. REFERENCES: NASCET CRITERIA. The degree of stenosis in the cervical segment of the internal carotid artery is based on NASCET criteria. Normal is no stenosis. Mild is less than 50% stenosis. Moderate is 50-69% stenosis. Severe is 70% to 99% stenosis. Total occlusion is no detectable patent lumen.
[2024-08-12 12:35] LABS: Add Urine Microscopic? YES; Bacteria Urine None Seen /hpf; Hyaline Casts Urine 0-4 /lpf; RBC Urine 0-2 /hpf (0-2); Squamous Epithelial Cell Urine 0-5 /hpf (0-5); WBC Urine 0-5 /hpf (0-5)
--- NOTE | 2024-08-12 12:35 | USCV_ITS ---
Loyda Roldan Age: 63 Gender: F : 1960 Exam Date: 08/12/2024 15:54 Ordering Phys: Eve Gonzales MD Technologist: Ambrocio Bosch [place] [facility] [place]: stroke BP: 139 / 91 HR: 73 Rhythm: Sinus Technical Quality: Adequate MEASUREMENTS (Male / Female) Normal Values 2D ECHO LV Diastolic Diameter PLAX 4.2 cm 4.2 - 5.9 / 3.9 - 5.3 cm IVS Diastolic Thickness 0.8 cm 0.6 - 1.0 / 0.6 - 0.9 cm IVS Systolic Thickness 1.3 cm LVPW Diastolic Thickness 1.3 cm 0.6 - 1.0 / 0.6 - 0.9 cm LVPW Systolic Thickness 1.9 cm LVOT Diameter 2.0 cm LV Ejection Fraction 2D Teich 68.5 % LV Ejection Fraction MOD 4C 63.1 % LV Ejection Fraction MOD 2C 67.4 % LV Ejection Fraction 2C AL 67.4 % LA Diameter 3.8 cm RA Systolic Volume 4C AL 23.2 ml RA Systolic Volume 4C MOD 23.3 ml LA Sys Volume AL 37.0 cm cubed LA Sys Volume Index AL 20.6 cm cubed/m squared Aorta at Sinotubular Diameter 2.0 cm IVC Diameter 1.5 cm M-MODE LA Ao Ratio MM 1.3 AV Cusp Separation MM 1.6 cm DOPPLER AV Peak Velocity 121.0 cm/s LVOT Peak Velocity 72.0 cm/s AV Area Cont Eq vti 2.0 cm squared AV Area Cont Eq pk 1.9 cm squared MV Peak Velocity 102.0 cm/s MV Area PHT 4.7 cm squared Mitral E to A Ratio 0.7 TV Peak Velocity 288.0 cm/s TR Peak Velocity 328.0 cm/s TR Peak Gradient 43.0 mmHg TR Mean Velocity 271.0 cm/s TR Mean Gradient 30.7 mmHg TR Velocity Time Integral 83.9 cm PV Peak Velocity 76.3 cm/s RV Ejection Time 0.3 s FINDINGS Left Ventricle Normal left ventricular size, systolic function and wall thickness, with no regional wall motion abnormalities. Estimated LVEF is normal 65%. Right Ventricle Normal right ventricular size and systolic function. Right Atrium Normal right atrial size. Left Atrium Normal left atrial size. Mitral Valve Structurally normal mitral valve. No mitral valve regurgitation. Aortic Valve Structurally normal trileaflet aortic valve. No aortic valve stenosis. No aortic valve regurgitation. Tricuspid Valve Structurally normal tricuspid valve. Trace tricuspid valve regurgitation. Gradient across the tricuspid valve could not be assessed appropriately. However it appears within normal range. Pulmonic Valve Structurally normal pulmonic valve. Trace pulmonary valve regurgitation. Pericardium No pericardial effusion. Aorta Normal size aortic root and proximal ascending aorta. IVC Normal inferior vena cava. CONCLUSIONS Normal left ventricle systolic function. LVEF estimated normal 65%. Normal right ventricle size and systolic function. No significant valvular abnormality noted. Normal right heart and pulmonary pressures. Champ Baugh MD (Electronically Signed) Final Date: 13 August 2024 13:51 S
[2024-08-12 12:37] LABS: Amphetamines Screen Urine Negative (Negative); Barbiturates Screen Urine Negative (Negative); Benzodiazepines Screen Urine Negative (Negative); Cocaine Screen Urine Negative (Negative); Opiate Screen Urine Negative (Negative); PCP Screen Urine Negative (Negative); THC Screen Urine Positive (Negative)
[2024-08-12] MEDS: iohexol 350 mg/mL 500 mL Btl (per mL) IV (12:47)
[2024-08-12 13:00] LABS: Cholesterol 134 mg/dL (0-200); Estmated Average Glucose 111; HDL Cholesterol 67 mg/dL (60-100); Hemoglobin A1C 5.5 % (4.0-6.0); LDL Cholesterol Calculated 51 mg/dL (50-129); LDL HDL Ratio 0.76 RATIO (0.00-3.22); Thyroid Stimulating Hormone 2.18 uIU/mL (0.27-4.20); Triglycerides 80 mg/dL (0-150)
--- NOTE | 2024-08-12 13:22 | ECG_ITS ---
[facility] Date: 2024-08-12 Pat Name: Loyda Roldan Department: Room: 269 Gender: Female Portuguese Tutor: : 1960 Requested By: Edilberto Domingo Order Number: [id number] Erasmo MD: Champ Baugh M.D. Measurements Intervals [place] Rate: 73 P: 51 MN: 160 QRS: 29 QRSD: 86 T: 43 QT: 383 QTc: 424 Interpretive Statements SINUS RHYTHM POSSIBLE LEFT ATRIAL ENLARGEMENT [-0.1mV P-WAVE IN V1/V2] Compared to ECG 01/20/2018 17:41:36 T-wave abnormality no longer present Electronically Signed On 08-12-2024 15:52:33 FITTING ROOM OPERATOR by Champ Baugh M.D. [email or web address]
--- NOTE | 2024-08-12 13:26 | PC.NURSE ---
Addendum entered by Marnie Aj LPN 08/12/24 14:37: Pt transferred up to med surg floor, room 269, via rmonika at 1428. This nurse assumed care of pt at this time. Original Note: This nurse took report from COLE Collins in ER at 1325.
--- NOTE | 2024-08-12 14:30 | MRR_ITS ---
PROCEDURE INFORMATION: Exam: MR Head Without Contrast Exam date and time: 08/12/2024 5:06 PM Age: 63 years old Clinical indication: Dizziness; Additional info: Posterior circulation stroke TECHNIQUE: Imaging protocol: Magnetic resonance imaging of the head without contrast. COMPARISON: CT angio headneck* [id number] 08/12/2024 12:42 PM FINDINGS: Brain: Bilateral periventricular white matter foci of high FLAIR signal, consistent with mild form of chronic ischemic small vessel disease. There is a chronic left basal ganglia lacunar infarct versus prominent perivascular space. No intracranial bleed. No acute infarct. No intracranial mass. Cerebral ventricles: Normal. No ventriculomegaly. Bones: Unremarkable. Paranasal sinuses: Mucosal disease of the left maxillary sinus. Mastoid air cells: Normal as visualized. No mastoid effusion. Orbital cavities: Unremarkable. Soft tissues: Unremarkable. MR/MR head wo con* [id number] IMPRESSION: No acute infarct, intracranial bleed or mass.
--- NOTE | 2024-08-12 14:38 | PC.NURSE ---
Upon helping patient get changed from street clothes into a gown, she said that she has lost a lot of weight and looks disgusting. She said she was trying to lose weight because she wanted her boyfriend to love her and then proceeded to tear up. She said she does not eat or drink much and that her doctor told her she needed to lose more weight.
[2024-08-12] MEDS: heparin 5,000 unit/mL INJ 1 mL 5000 UNIT SUBCUT (14:59)
[2024-08-12] MEDS: atorvastatin 40 mg Tablet 80 MG PO (15:00)
[2024-08-12] MEDS: ondansetron 2 mg/ML SDV 2 mL 4 MG IVP (19:36)
[2024-08-12] MEDS: zolpidem 5 mg Tablet PO (20:49)
[2024-08-13] MEDS: heparin 5,000 unit/mL INJ 1 mL 5000 UNIT SUBCUT (00:54)
[2024-08-13] MEDS: acetaminophen 325 mg Tablet 650 MG PO ×2 (00:54→09:16)
[2024-08-13 03:56] VITALS: BP 133/76; PULSE 77; RESP 16; TEMP 36.5; O2SAT 96
[2024-08-13 05:08] LABS: Basophils # 0.1 10^3/uL (0.0-0.1); Basophils % 0.9 %; Eosinophils # 0.1 10^3/uL (0.0-0.8); Eosinophils % 1.3 %; Hematocrit 38.1 % (36-47); Lymphocytes # 2.2 10^3/uL (0.8-4.8); Lymphocytes % 40.6 %; Mean Corpuscular HGB Conc 32.3 g/dL (30-55); Mean Corpuscular Hemoglobin 28.9 pg (27-33); Mean Corpuscular Volume 89.6 fl (85-98); Mean Platelet Volume 12.9 fL (7.4-10.4); Monocytes # 0.6 10^3/uL (0.2-0.9); Monocytes % 10.8 %; Neutrophils # 2.52 10^3/uL (1.8-7.7); Neutrophils % 46.2 %; Nucleated Red Blood Cells % 0 %; Platelet Count 206 10^3/cmm (157-399); Red Blood Count 4.25 10^6/uL (3.85-5.65); Red Cell Distribution Width 13.1 % (12.1-15.1); White Blood Count 5.45 10^3/uL (3.29-11.43)
[2024-08-13 05:14] VITALS: PULSE 75
[2024-08-13 05:26] LABS: Alanine Aminotransferase 6 U/L (0-33); Albumin Level 3.9 g/dL (3.5-5.2); Alkaline Phosphatase 70 U/L (35-105); Blood Urea Nitrogen 6 mg/dL (8-23); Calcium 8.9 mg/dL (8.5-10.5); Carbon Dioxide 26 mmol/L (22-29); Chloride 102 mmol/L (98-107); Creatinine Clr Calc Pharmacy 57.0894; Globulin 2.7 g/dL (1.3-4.6); Glomerular Filtration Rate 56.4 mL/min (90-130); Glucose 94 mg/dL (65-115); Magnesium 1.4 mg/dL (1.7-2.3); Osmolality Calculated 285 mOsm/kg (285-295); Sodium 139 mmol/L (136-145); Total Bilirubin 0.9 mg/dL (0.15-1.2); Total Protein 6.6 g/dL (6.6-8.7)
[2024-08-13 05:27] LABS: Anion Gap 14.6 (5-19); Aspartate Amino Transferase 17 U/L (0-32); Potassium 3.6 mmol/L (3.5-5.1)
[2024-08-13 08:00] VITALS: BP 145/86; PULSE 75; RESP 17; TEMP 36.6; O2SAT 98
[2024-08-13] MEDS: atorvastatin 40 mg Tablet 80 MG PO (09:10)
[2024-08-13] MEDS: CELEcoxib 200 mg Capsule PO (09:10)
[2024-08-13] MEDS: aspirin 325 mg Tablet PO (09:10)
[2024-08-13] MEDS: clopidogrel 75 mg Tablet PO (09:10)
[2024-08-13] MEDS: gabapentin 300 mg Capsule PO (09:10)
[2024-08-13] MEDS: ezetimibe 10 mg Tablet PO (09:10)
[2024-08-13] MEDS: citalopram 20 mg Tablet 10 MG PO (09:10)
[2024-08-13] MEDS: sodium chloride 0.9% 1,000 ML 100 ML IV (10:09)
[2024-08-13 11:27] VITALS: BP 137/71; PULSE 77; RESP 17; TEMP 36.8; O2SAT 98
--- NOTE | 2024-08-13 12:20 | P.DS_ITS ---
Discharge Providers Date of Admission: 08/12/24 11:28 Date of Discharge: August 13, 2024 Attending Provider at Admission: Eve Gonzales MD Attending Provider at Discharge: Eve Gonzales MD Primary Care Provider: Ericka Wolfe MD Diagnoses at Discharge Discharge Diagnosis (1) Posterior circulation stroke: Status: Acute (2) S/P CABG x 2: Status: Acute (3) GERD (gastroesophageal reflux disease): Status: Acute (4) Hyperlipidemia: Status: Acute (5) Ex-smoker: Status: Acute (6) Diabetes mellitus: Status: Acute Reason for Visit Reason for Visit: Dizziness, back injury - Fall Hospital Course Hospital Course Patient presented to the hospital with worsening dizziness. She says she normally does have dizziness. She was seen by telestroke service from [place]. Posterior circulation stroke was suspected. Patient instructed to lay down supine and IV fluids were started. She is already medically optimized on her medical therapy secondary to prior CABG and CAD status. She was recommended to lose more weight and continue medications for further prevention of vascular episodes. MRI brain was pursued which ruled out a posterior circulation stroke. Patient had a CTA head and neck done as well which showed distal vertebral right artery stenosis. Discussed with neurology at [place] who do not recommend any intervention at this time. They do hospitalization patient feels better dizziness is improved. She states that she has been having problems with her ears as well. I have recommended her to see ENT as an outpatient. She would like to see someone in [place] referral has been placed. You do not have physical therapy available at the hospital today to perform Galdino maneuver Evan- Hallpike at this time. Discussed with her regarding staying another day to be seen by physical therapy in the morning. She prefers to see physical therapy as an outpatient. Symptoms has resolved and it will be reasonable to discharge patient home at this time. Her echo is completed however report is pending at this time. She may follow-up with her primary care doctor regarding that. She does not need any refills of her medications as that was asked at time of discharge. She will be sent home in stable condition at this time. I have increased her Crestor to 20 mg daily. Stable at time of discharge. No neurological deficits. Lastly telemetry did not show any arrhythmias at this time. Will place an event monitor at time of discharge to rule out any underlying arrhythmias. Physical Exam Narrative: General: Alert oriented x3, patient seen laying in bed appearing comfortable at this time. HEENT: Normocephalic, atraumatic, EOMI, room air. Cardio: Regular rate rhythm, normal S1-S2, Respiratory: Good bilateral air entry, no wheezes no rhonchi appreciated GI: Abdomen soft, nontender, nondistended, bowel sounds + Extremities: No edema bilateral extremities Neuro: Nonfocal.. Discharge Data Studies Completed and Pending Completed Studies During Hospitalization Category Date Time Status CT cervical spin wo con* [id number] Stat Cat Scan 08/12/24 10:[address] head thrombolytic 30414 Stat Cat Scan 08/12/24 10:[address] lumbar spine wo con* [id number] Stat Cat Scan 08/12/24 09:56 Completed CTA head neck [CT angio headneck* [id number]] Stat Cat Scan 08/12/24 12:30 Completed MR head wo con* [id number] Urgent MRI 08/12/24 14:30 Completed Pending at discharge Category Date Time Status US echo complete [CV. echo complete* [id number]] Routine Ultrasound 08/12/24 12:35 Taken Radiology Impressions Lumbar Spine CT 08/12/24 09:56 IMPRESSION: 1. No acute fracture or dislocation. 2. Disc bulge with left paracentral protrusion at L4-L5 causing moderate to severe thecal sac compression moderate narrowing of bilateral neural foramina. Head CT 08/12/24 10:12 IMPRESSION: No evidence of an acute abnormality. No intracranial hemorrhage. ASSESSMENT: ASPECTS ([place] Stroke Program Early CT Score) is 10. Cervical Spine CT 08/12/24 10:13 IMPRESSION: No acute findings. Head/Neck CTA 08/12/24 12:30 IMPRESSION: Severe stenosis involving the distal right vertebral artery. This does appear to be the main supply of the basilar artery. IMPRESSION: Moderate right proximal internal carotid artery stenosis. REFERENCES: NASCET CRITERIA. The degree of stenosis in the cervical segment of the internal carotid artery is based on NASCET criteria. Normal is no stenosis. Mild is less than 50% stenosis. Moderate is 50-69% stenosis. Severe is 70% to 99% stenosis. Total occlusion is no detectable patent lumen. Head MRI 08/12/24 14:30 IMPRESSION: No acute infarct, intracranial bleed or mass. Laboratory Results WBC 5.45 10^3/uL (3.29-11.43) 08/13/24 04:24 RBC 4.25 10^6/uL (3.85-5.65) 08/13/24 04:24 Hgb 12.30 g/dL (11.27-16.99) 08/13/24 04:24 Hct 38.1 % (36-47) 08/13/24 04:24 MCV 89.6 fl (85-98) 08/13/24 04:24 MCH 28.9 pg (27-33) 08/13/24 04:24 MCHC 32.3 g/dL (30-55) 08/13/24 04:24 RDW 13.1 % (12.1-15.1) 08/13/24 04:24 Plt Count 206 10^3/cmm (157-399) 08/13/24 04:24 MPV 12.9 fL (7.4-10.4) H 08/13/24 04:24 Neut % (Auto) 46.2 % 08/13/24 04:24 Lymph % (Auto) 40.6 % 08/13/24 04:24 [place] % (Auto) 10.8 % 08/13/24 04:24 Eos % (Auto) 1.3 % 08/13/24 04:24 Baso % (Auto) 0.9 % 08/13/24 04:24 Neut # (Auto) 2.52 10^3/uL (1.8-7.7) 08/13/24 04:24 Lymph # (Auto) 2.2 10^3/uL (0.8-4.8) 08/13/24 04:24 [place] # (Auto) 0.6 10^3/uL (0.2-0.9) 08/13/24 04:24 Eos # (Auto) 0.1 10^3/uL (0.0-0.8) 08/13/24 04:24 Baso # (Auto) 0.1 10^3/uL (0.0-0.1) 08/13/24 04:24 Nucleated RBC % (auto) 0 % 08/13/24 04:24 Nucleated RBCs # 0.0 /100WBC 08/13/24 04:24 PT 13.90 SECONDS (12.1-14.9) 08/12/24 10:08 INR 1.04 (0.8-1.2) 08/12/24 10:08 APTT 26.5 SECONDS (23.9-36.7) 08/12/24 10:08 Sodium 139 mmol/L (136-145) 08/13/24 04:24 Potassium 3.6 mmol/L (3.5-5.1) 08/13/24 04:24 Chloride 102 mmol/L (98-107) 08/13/24 04:24 Carbon Dioxide 26 mmol/L (22-29) 08/13/24 04:24 Anion Gap 14.6 (5-19) 08/13/24 04:24 BUN 6 mg/dL (8-23) L 08/13/24 04:24 Creatinine 1.0 mg/dL (0.5-0.9) H 08/13/24 04:24 GFR Calculation 56.4 mL/min (90-130) L 08/13/24 04:24 Glucose 94 mg/dL (65-115) 08/13/24 04:24 POC Glucose 83 mg/dL (70-110) 08/12/24 10:31 Estimat Average Glucose 111 08/12/24 10:08 Hemoglobin A1c 5.5 % (4.0-6.0) 08/12/24 10:08 Calculated Osmolality 285 mOsm/kg (285-295) 08/13/24 04:24 Calcium 8.9 mg/dL (8.5-10.5) 08/13/24 04:24 Magnesium 1.4 mg/dL (1.7-2.3) L 08/13/24 04:24 Total Bilirubin 0.9 mg/dL (0.15-1.2) 08/13/24 04:24 AST 17 U/L (0-32) 08/13/24 04:24 ALT 6 U/L (0-33) 08/13/24 04:24 Alkaline Phosphatase 70 U/L (35-105) 08/13/24 04:24 Total Protein 6.6 g/dL (6.6-8.7) 08/13/24 04:24 Albumin 3.9 g/dL (3.5-5.2) 08/13/24 04:24 Globulin 2.7 g/dL (1.3-4.6) 08/13/24 04:24 Triglycerides 80 mg/dL (0-150) 08/12/24 10:08 Cholesterol 134 mg/dL (0-200) 08/12/24 10:08 LDL Cholesterol, Calc 51 mg/dL (50-129) 08/12/24 10:08 HDL Cholesterol 67 mg/dL (60-100) 08/12/24 10:08 LDL/HDL Ratio 0.76 RATIO (0.00-3.22) 08/12/24 10:08 Cholesterol/HDL Ratio 2.00 mg/dL (0.0-4.40) 08/12/24 10:08 TSH 2.18 uIU/mL (0.27-4.20) 08/12/24 10:08 Urine Color Yellow (Yellow) 08/12/24 12:22 Urine Appearance Clear (CLEAR) 08/12/24 12:22 Urine pH 7.0 (5-7) 08/12/24 12:22 Ur Specific [place] 1.008 (1.005-1.030) 08/12/24 12:22 Urine Protein Negative (Negative) 08/12/24 12:22 Urine Glucose (UA) Negative (Normal) 08/12/24 12:22 Urine Ketones Negative (Negative) 08/12/24 12:22 Urine Blood Negative (Negative) 08/12/24 12:22 Urine Nitrate Negative (Negative) 08/12/24 12:22 Urine Bilirubin Negative (Negative) 08/12/24 12:22 Urine Urobilinogen 1.0 mg/dL (Negative) 08/12/24 12:22 Ur Leukocyte Esterase 1+ (Negative) A 08/12/24 12:22 Urine RBC 0-2 /hpf (0-2) 08/12/24 12:22 Urine WBC 0-5 /hpf (0-5) 08/12/24 12:22 Ur Squamous Epith Cells 0-5 /hpf (0-5) 08/12/24 12:22 Amorphous Sediment Not Reportable 08/12/24 12:22 Urine Bacteria None seen /hpf (NONE) 08/12/24 12:22 Hyaline Casts 0-4 /lpf H 08/12/24 12:22 Urine Opiates Screen Negative ng/mL (Negative) 08/12/24 12:22 Ur Barbiturates Screen Negative ng/mL (Negative) 08/12/24 12:22 Ur Phencyclidine Scrn Negative ng/mL (Negative) 08/12/24 12:22 Ur Amphetamines Screen Negative ng/mL (Negative) 08/12/24 12:22 U Benzodiazepines Scrn Negative ng/mL (Negative) 08/12/24 12:22 Urine Cocaine Screen Negative ng/mL (Negative) 08/12/24 12:22 U Marijuana (THC) Screen Positive ng/mL (Negative) H 08/12/24 12:22 Vitals Last Vital Signs Temp 98.3 F 08/13/24 11:27 Pulse 77 08/13/24 11:27 Resp 17 08/13/24 11:27 BP 137/71 08/13/24 11:27 Pulse Ox 98 08/13/24 11:27 O2 Del Method Room Air 08/13/24 11:27 Discharge Plan Discharge Patient Disposition: Home Condition: Stable Prescriptions: Continued citalopram 10 mg tablet 10 mg PO DAILY ezetimibe 10 mg tablet 10 mg PO DAILY gabapentin 300 mg capsule 300 mg PO DAILY isosorbide mononitrate 60 mg tablet extended release 24 hr 60 mg PO BID metoprolol tartrate 100 mg tablet 100 mg PO BID nitroglycerin 0.4 mg tablet, sublingual 0.4 mg sublingual Q5M PRN (Reason: Chest Pain) Rx Instructions: do not exceed 3 doses per episode potassium chloride 10 mEq capsule, extended release 10 meq PO BID spironolactone 25 mg tablet 25 mg PO DAILY Ozempic 2 mg/dose (8 mg/3 mL) pen injector 2 mg SUBCUT Q7D celecoxib 200 mg capsule 200 mg PO DAILY aspirin [Tanya Aspirin] 325 mg Tablet 325 mg PO DAILY clopidogrel 75 mg tablet 75 mg PO DAILY Changed rosuvastatin 10 mg tablet 20 mg PO DAILY Qty: 30 0RF Discharge Orders: Discharge Order (Routine); Ordered 08/13/24 Ordered By: Eve Gonzales Other Ambulatory Orders: Physical Therapy Eval and Treat Outpatient (Order) Timeframe: 1 Day Facility: [facility] - Location: Physical Therapy Ordered By: Eve Gonzales MCT/Event Monitor 21 Days (Routine) Timeframe: 1 Day Facility: [facility] - Location: Radiology Ordered By: Eve Gonzales Referrals: Ericka Wolfe MD [Primary Care Provider] - 4-7 days Jonny Roldan MD [Referring] - 4-7 days (dizziness, vertigo, posterior circulation stroke ruled out) Discharge Diet: Cardiac and Diabetic Patient Instructions: Vertigo (DC), Near Syncope (DC), Dizziness (ED), Hyperlipidemia (DC), Opioid Safety, Stroke Stoplight Discharge Attestations Time Spent in Discharge Care*: greater than 30 min Quality Metrics Clinical Quality Measures [ No reported AMI, CVA or VTE this stay] Coding Level of Care Code Acute Code for Chg Fwd Diagnoses Posterior circulation stroke I63.50 S/P CABG x 2 Z95.1 GERD (gastroesophageal reflux disease) K21.9 Hyperlipidemia E78.5 Ex-smoker Z87.891 Diabetes mellitus E11.9
[2024-08-13 13:54] VITALS: BP 137/71; PULSE 77; RESP 17; TEMP 36.8; O2SAT 98
--- NOTE | 2024-08-14 09:51 | PC.OT ---
OT ORDERS RECEIVED; PATIENT D/C BEFORE EVALUATION COULD BE COMPLETED.
== END 2024-08-13 13:55 | disposition home or self-care (01) | DRG 68 ==
LOC: ER 11:08 → MEDSURG 12:52
PROVIDERS: Admitting Provider Internal Medicine; Emergency Provider Family Medicine; PCP Family Medicine; Visit Provider Internal Medicine
DX: I65.01 Occlusion and stenosis of right vertebral artery (principal); R29.700 NIHSS score 0; R29.6 Repeated falls; E78.5 Hyperlipidemia, unspecified; E11.9 Type 2 diabetes mellitus without complications; I25.10 Atherosclerotic heart disease of native coronary artery without angina pectoris; K21.9 Gastro-esophageal reflux disease without esophagitis; J44.9 Chronic obstructive pulmonary disease, unspecified; Z79.82 Long term (current) use of aspirin; Z79.02 Long term (current) use of antithrombotics/antiplatelets; Z79.1 Long term (current) use of non-steroidal anti-inflammatories (NSAID); Z79.85 Long-term (current) use of injectable non-insulin antidiabetic drugs; Z95.5 Presence of coronary angioplasty implant and graft; Z95.1 Presence of aortocoronary bypass graft; Z87.891 Personal history of nicotine dependence
CPT/HCPCS: 36415; 36416; 70450; 70496; 70498; 70551; 72125; 72131; 80053; 80061; 80306; 81001; 82962; 83036; 83735; 84443; 85025; 85610; 85730; 93005; 93306; 96361; 96372; 96374; 96375; 99285; J1644; J2060; J2405; J7030

== ENCOUNTER 2024-08-15 10:57 | Inpatient (IN) | payer MEDICARE, MEDICAID, SELFPAY ==
[2024-08-15] VITALS (10 sets, daily range): BP systolic 146–158; BP diastolic 80–100; PULSE 72–91; RESP 15–20; TEMP 36.6–36.8; O2SAT 94–99; BMI 28.5; BMI 28.3
--- NOTE | 2024-08-15 11:10 | ED_ITS ---
HPI - Nausea/Vomiting/Diarrhea 2 General: Chief complaint: Nausea/Vomiting/Diarrhea Stated complaint: N/V Time Seen by Provider: 08/15/24 11:00 History of Present Illness: 63-year-old female who presents to the e mergency room with persistent dizziness. She was seen in the emergency room over the weekend admitted for possible posterior circulation stroke. MRI was done which was negative. She is still having severe vertiginous-like symptoms. Symptoms are improved if she lays in her back with her eyes closed. If she moves at all or stands up she has difficulty. She has true vertiginous like symptoms. No vomiting. She has not struck her head. Associated symtoms: Denies chest pain or dysuria Related Data Home Medications Medication Instructions Recorded Confirmed citalopram 10 mg tablet 10 mg PO DAILY 12/30/20 08/15/24 ezetimibe 10 mg tablet 10 mg PO DAILY 12/30/20 08/15/24 gabapentin 300 mg capsule 300 mg PO DAILY 12/30/20 08/15/24 isosorbide mononitrate 60 mg 60 mg PO BID 12/30/20 08/15/24 tablet,extended release 24 hr metoprolol tartrate 100 mg tablet 100 mg PO BID 12/30/20 08/15/24 nitroglycerin 0.4 mg sublingual 0.4 mg sublingual Q5M PRN Chest 12/30/20 08/15/24 tablet Pain potassium chloride 10 mEq 10 meq PO BID 12/30/20 08/15/24 capsule,extended release spironolactone 25 mg tablet 25 mg PO DAILY 12/30/20 08/15/24 aspirin 325 mg tablet (Tanya 325 mg PO DAILY 08/12/24 08/15/24 Aspirin) celecoxib 200 mg capsule 200 mg PO DAILY 08/12/24 08/15/24 clopidogrel 75 mg tablet 75 mg PO DAILY 08/12/24 08/15/24 semaglutide 2 mg/dose (8 mg/3 mL) 2 mg SUBCUT Q7D 08/12/24 08/15/24 subcutaneous pen injector (Ozempic) pantoprazole 40 mg tablet,delayed 40 mg PO BID 08/15/24 08/15/24 release rosuvastatin 20 mg tablet 20 mg PO DAILY 08/15/24 08/15/24 Allergies Allergy/AdvReac Type Severity Reaction Status Date / Time codeine Allergy Severe ADR-Chest Verified 02/14/21 14:27 Pain egg Allergy Severe ADR-Vomitin Verified 02/14/21 14:27 g morphine Allergy Severe Unconscious Verified 02/14/21 14:27 tramadol Allergy Severe ALGY-Rash Verified 02/14/21 14:27 Review of Systems 2 Const: Denies: fever(s) or chills Card: Denies: chest pain Resp: Denies: dyspnea GI: Denies: abdominal pain : Denies: dysuria, urinary frequency or urinary urgency Musc: Denies: neck pain or back pain Skin/Breast: Denies: rash PFSH ED 2 PFSH: Medical History (Updated 08/16/24 @ 06:48 by Edilberto Law DO) Diabetes mellitus, type II Hypertension 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 in 06/2024 Right adrenal mass myelolipoma present since 2018, 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 Liver lesion, right lobe calcified density present since at least 2019 in inferomedical right lobe of liver Aneurysm of infrarenal abdominal aorta saccular aneurysm per radiology, aorta diameter 2 cm 06/2024 History of cardiovascular stress test 07/2020 History of cardiac arrest during hysterectomy Hyperlipidemia Depression History of coronary angiogram GERD (gastroesophageal reflux disease) COPD (chronic obstructive pulmonary disease) CAD (coronary artery disease) Colon polyp Surgical History (Updated 08/15/24 @ 13:35 by Margarita Oliver MD) History of coronary artery stent placement history of in-stent re-stenosis S/P CABG x 2 (2007) History of surgical amputation of finger History of hysterectomy History of laparotomy History of cholecystectomy History of colonoscopy 2020 History of surgery on wrist History of esophagogastroduodenoscopy (EGD) 2020 Family History (Updated 08/15/24 @ 13:35 by Margarita Oliver MD) Father CAD (coronary artery disease) Social History (Updated 08/15/24 @ 19:31 by Margarita Oliver MD) Smoking and tobacco/nicotine status: former use of tobacco/nicotine Quit status (tobacco/nicotine): has quit using Year quit tobacco: 2018 Physical Exam 2 Const: COMMON NORMALS: no acute distress GENERAL APPEARANCE: cooperative and comfortable ORIENTATION/CONSCIOUSNESS: Yes awake, Yes oriented to person, Yes oriented to place and Yes oriented to time HENMT: COMMON NORMALS: normocephalic, atraumatic and hearing grossly normal bilaterally HEAD & SCALP: normocephalic and atraumatic Resp: COMMON NORMALS: normal respiratory effort, No retractions, No use of accessory muscles and clear to auscultation bilaterally AUSCULTATION: clear to auscultation bilaterally Cardio: COMMON NORMALS: regular rate, regular rhythm and No murmurs present (Cardio) RATE: regular rate RHYTHM: regular rhythm GI: COMMON NORMALS: Soft to palpation and No hepatosplenomegaly present A USCULTATION: Yes normoactive bowel sounds PALPATION: Yes Soft to palpation, No Tenderness to palpation present (GI), No Guarding due to palpation present (GI) and Yes No hepatosplenomegaly present Extremity: COMMON NORMALS: normal to inspection, capillary refill normal, no clubbing, cyanosis or edema, no calf tenderness and no pedal edema Neuro: SENSORIUM/ORIENTATION: Yes oriented to person, Yes oriented to place and Yes oriented to time Skin: COMMON NORMALS: no rashes or lesions noted GENERAL SKIN EXAM: no rashes or lesions noted Course 2 Vital Signs: Vital signs: Vital Signs Temperature 97.6 F 08/16/24 04:00 Pulse Rate 82 08/16/24 04:00 Respiratory Rate 24 H 08/16/24 04:00 Blood Pressure 164/93 08/16/24 04:00 Pulse Oximetry 98 08/16/24 04:00 Oxygen Delivery Me thod Room Air 08/16/24 04:00 MDM - Nausea/Vomiting/Diarrhea Medical Decision Making Persistent symptoms. She did have stenosis of her vertebral basilar artery this may also be vestibular neuritis. Her symptoms are reproducible with movement of her head and change in body position we did try to stand her she was unable to manage even with the assist of 2 to stand at the bedside safely. Will admit consult neurology discussed with hospitalist Lab Data 08/15/24 11:11 08/16/24 05:[address] 08/15/24 11:11 IMPRESSION: 1. No acute intracranial hemorrhage or edema. 2. Mild bilateral frontal lobe atrophy and small vessel disease. 3. No edema or interval change in the occipital lobe. Internal Auditory Canal MRI 08/15/24 15:11 IMPRESSION: 1. No evidence of acute intracranial abnormality. Laboratory Results WBC 7.56 10^3/uL (3.29-11.43) 08/15/24 11:11 RBC 4.81 10^6/uL (3.85-5.65) 08/15/24 11:11 Hgb 14.20 g/dL (11.27-16.99) 08/15/24 11:11 Hct 42.9 % (36-47) 08/15/24 11:11 MCV 89.2 fl (85-98) 08/15/24 11:11 MCH 29.5 pg (27-33) 08/15/24 11:11 MCHC 33.1 g/dL (30-55) 08/15/24 11:11 RDW 13.1 % (12.1-15.1) 08/15/24 11:11 Plt Count 217 10^3/cmm (157-399) 08/15/24 11:11 MPV 12.3 fL (7.4-10.4) H 08/15/24 11:11 Neut % (Auto) 78.6 % 08/15/24 11:11 Lymph % (Auto) 15.7 % 08/15/24 11:11 [place] % (Auto) 4.5 % 08/15/24 11:11 Eos % (Auto) 0.5 % 08/15/24 11:11 Baso % (Auto) 0.4 % 08/15/24 11:11 Neut # (Auto) 5.94 10^3/uL (1.8-7.7) 08/15/24 11:11 Lymph # (Auto) 1.2 10^3/uL (0.8-4.8) 08/15/24 11:11 [place] # (Auto) 0.3 10^3/uL (0.2-0.9) 08/15/24 11:11 Eos # (Auto) 0.0 10^3/uL (0.0-0.8) 08/15/24 11:11 Baso # (Auto) 0.0 10^3/uL (0.0-0.1) 08/15/24 11:11 Nucleated RBC % (auto) 0 % 08/15/24 11:11 Nucleated RBCs # 0.0 /100WBC 08/15/24 11:11 Sodium 140 mmol/L (136-145) 08/15/24 11:11 Potassium 3.7 mmol/L (3.5-5.1) 08/15/24 11:11 Chloride 100 mmol/L (98-107) 08/15/24 11:11 Carbon Dioxide 24 mmol/L (22-29) 08/15/24 11:11 Anion Gap 19.7 (5-19) H 08/15/24 11:11 BUN 8 mg/dL (8-23) 08/15/24 11:11 Creatinine 0.9 mg/dL (0.5-0.9) 08/15/24 11:11 GFR Calculation 63.7 mL/min (90-130) L 08/15/24 11:11 Glucose 127 mg/dL (65-115) H 08/15/24 11:11 Calculated Osmolality 290 mOsm/kg (285-295) 08/15/24 11:11 Calcium 9.6 mg/dL (8.5-10.5) 08/15/24 11:11 Magnesium 1.5 mg/dL (1.7-2.3) L 08/15/24 11:11 Total Bilirubin 1.3 mg/dL (0.15-1.2) H 08/15/24 11:11 AST 22 U/L (0-32) 08/15/24 11:11 ALT 10 U/L (0-33) 08/15/24 11:11 Alkaline Phosphatase 82 U/L (35-105) 08/15/24 11:11 Total Protein 7.7 g/dL (6.6-8.7) 08/15/24 11:11 Albumin 4.4 g/dL (3.5-5.2) 08/15/24 11:11 Globulin 3.3 g/dL (1.3-4.6) 08/15/24 11:11 All radiology interpretation(s) finalized by discharge Discharge Plan Discharge Patient Disposition: Admitted As Inpatient Admit Provider: Margarita Oliver Clinical Impression: Acute posterior circulation transient ischemic attack, Vertigo, Diabetes mellitus, type II Condition: Stable Coding Level of Care Code ED Manager Documentation for Raeann Farah
--- NOTE | 2024-08-15 11:11 | CT_ITS ---
WS: [id number] CT HEAD NONCONTRAST HISTORY: posterior circulation CVA TECHNIQUE: Contiguous axial imaging performed through the brain. Bone and soft tissue windows. Sagitt al and coronal reformats reviewed. All CT scans at [facility] use at least one of these dose optimization techniques: automated exposure control; mA and/or kV adjustment per patient size (includ es targeted exams where dose is matched to clinical indication); or iterative reconstruction. DLP: 1083.58 mGy.cm COMPARISON: 08/12/2024 No acute intracranial hemorrhage, midline shift or mass effect. Mild bilateral frontal lobe atrophy. Mild small vessel disease. No edema or interval change involving the posterior circulation. Ventricles: Normal size with no hydrocephalus. No inferior displacement of the cerebellar tonsils. Dense calcified plaque in the distal vertebral ar teries and in the intracranial carotid arteries. Paranasal sinuses: Small air-fluid level in the RIGHT sphenoid sinus. Mastoid air cells: Well pneumatized. Calvarium and scalp: Skull is intact with no soft tissue edema or swelling. CT/CT head wo con* [id number] IMPRESSION: 1. No acute intracranial hemorrhage or edema. 2. Mild bilateral frontal lobe atrophy and small vessel disease. 3. No edema or interval change in the occipital lobe.
[2024-08-15] MEDS: ondansetron 2 mg/ML SDV 2 mL 4 MG IVP ×2 (11:18→18:44)
[2024-08-15 11:21] LABS: Basophils % 0.4 %; Eosinophils % 0.5 %; Hematocrit 42.9 % (36-47); Lymphocytes # 1.2 10^3/uL (0.8-4.8); Lymphocytes % 15.7 %; Mean Corpuscular HGB Conc 33.1 g/dL (30-55); Mean Corpuscular Hemoglobin 29.5 pg (27-33); Mean Corpuscular Volume 89.2 fl (85-98); Mean Platelet Volume 12.3 fL (7.4-10.4); Monocytes # 0.3 10^3/uL (0.2-0.9); Monocytes % 4.5 %; Neutrophils # 5.94 10^3/uL (1.8-7.7); Neutrophils % 78.6 %; Nucleated Red Blood Cells % 0 %; Platelet Count 217 10^3/cmm (157-399); Red Blood Count 4.81 10^6/uL (3.85-5.65); Red Cell Distribution Width 13.1 % (12.1-15.1); White Blood Count 7.56 10^3/uL (3.29-11.43)
[2024-08-15 11:43] LABS: Alanine Aminotransferase 10 U/L (0-33); Albumin Level 4.4 g/dL (3.5-5.2); Alkaline Phosphatase 82 U/L (35-105); Anion Gap 19.7 (5-19); Aspartate Amino Transferase 22 U/L (0-32); Blood Urea Nitrogen 8 mg/dL (8-23); Calcium 9.6 mg/dL (8.5-10.5); Carbon Dioxide 24 mmol/L (22-29); Chloride 100 mmol/L (98-107); Creatinine Clr Calc Pharmacy 60.4806; Globulin 3.3 g/dL (1.3-4.6); Glomerular Filtration Rate 63.7 mL/min (90-130); Glucose 127 mg/dL (65-115); Osmolality Calculated 290 mOsm/kg (285-295); Potassium 3.7 mmol/L (3.5-5.1); Sodium 140 mmol/L (136-145); Total Bilirubin 1.3 mg/dL (0.15-1.2); Total Protein 7.7 g/dL (6.6-8.7)
--- NOTE | 2024-08-15 12:09 | PC.NURSE ---
PATIENT TRANSFERRED TO BEDSIDE COMMODE. PATIENT BECAME WEAK AND LEGS GAVE OUT. PATIENT CAREGIVER AND THIS NURSE PRESENT AT BEDSIDE AND WERE ABLE TO KEEP PATIENT OFF THE FLOOR. PATIENT PLACED ON COMMODE.
[2024-08-15] MEDS: LORazepam 2 mg/mL INJ 1 mL 1 MG IVP ×2 (12:18→20:22)
--- NOTE | 2024-08-15 13:20 | P.HP_ITS ---
Providers/Chief Complaint 2 Admitting Physician: Margarita Oliver MD Primary Care Provider: Ericka Wolfe MD Chief Complaint: N/V History of Present Illness Loyda Roldan is a 63 year old female who presented to the emergency room with chief complaint of persistent dizziness, nausea and vomiting. She was hospitalized from August 12 to with similar symptoms. Concern was for posterior circulation stroke. She was seen by [facility] teleneurology. NIH stroke scale was 0. She presented outside of the window for any intervention as her symptoms have been going on for a couple of days at that point in time. She was found to have severe stenosis of the right distal vertebral artery with a small thin branch supplying the basilar artery. She had 50 to 60% stenosis in the right internal carotid artery with less than 50% stenosis on the left. MRI did not reveal acute infarction, intracranial bleed or mass. Some mucosal disease of the left sinus was noted. No mastoid effusion was noted. There were chronic left basal ganglia lacunar infarctions versus prominent perivascular space. Her symptoms improved and she ended up discharging the day after admission. She was recommended to take a full aspirin, Plavix, increased dose of Crestor and to continue her other usual medications. She continued to have dizziness, nausea and vomiting while she was in the hospital but was able to get up and walk to the bathroom if she was careful. A day or so after getting home her symptoms seem to worsen significantly with her having limited oral intake that was not subsequently vomited. She has not been able to keep down her home medications as these have also been vomited. Her ability to ambulate with significantly worse over the last 24 hours. She has had a couple of falls but no injury. She had an appointment scheduled with her primary care provider for today but her significant other was not able to physically get her up and with her persistent dizziness and vomiting called for an ambulance to bring her in. She required multiperson support to move and with any amount of movement her symptoms escalated. In talking with her and her partner she had a couple of episodes last week in which she fell down. At least one of them seemed to be more mechanical with her missing a step but another one is not clear what happened. She feels like things are spinning. Denies any double vision. She has to keep her eyes closed when the dizziness hits her. She cannot recall a time that she has been without some degree of symptoms since coming home. If she lies completely still she is at her best right now. Even moving her eyes around she will get dizzy. No headaches. She has had some fullness in her left ear and some tinnitus, no hearing loss but ears feel full. She has had a little bit of a runny nose. No recent fevers or known illness. She has had problems with intermittent dizziness in the past but nothing this severe. In addition to the vertigo symptoms Mrs. Roldan has also had intermittent issues with right sided abdominal pain. She had workup in June that included CTs of the abdomen and pelvis. She was found to have what looked to be a saccular aneurysm in the infrarenal region of the aorta. She was seen by a physician in [place] who indicated she did not have an aneurysm of concern. Also noted on that same imaging was a calcified liver lesion that is stable since at least 2018. She had a CTA of the abdomen also in May that revealed 30 to 40% SMA atherosclerosis/stenosis. She started Ozempic earlier this year and is up to 2 mg dosing. Last dose was yesterday. She has been having progressively more constipation with this and takes multiple laxatives including milk of magnesia, suppositories, softeners when needed. Last bowel movement was after she returned home from the hospital. Because of her stomach symptoms she did start utilizing THC Gummies. She takes generally one 5 mg gummy at night. In addition she does take Protonix. Mrs. Roldan missed an appointment with her primary care provider Dr. Ericka Wolfe due to hospital admission. In the ER she received IV fluids, Zofran and Ativan. She feels some better if she is very still but with any form of movement severe vertigo symptoms recur. She was not able to get up to the bedside commode with two-person assist. Given the severity of her symptoms she is being admitted for further care. Review of Systems 2 General: Reports: Other (ROS as per HPI or as otherwise noted here) Const: Reports: change in appetite, fatigue and malaise; Denies: fever(s) or chills Eyes: Reports: eye discomfort (mild); Denies: change in vision, blurry vision, blind spots, photophobia, eye discharge, eye redness or seeing flashes ENMT: Denies: throat pain Card: Denies: chest pain, palpitations, dyspnea on exertion or orthopnea Resp: Denies: dyspnea, productive cough, non-productive cough or wheezing GI: Reports: abdominal pain (right sided sometimes), nausea, vomiting, diarrhea, constipation and change in stool character (since starting ozempic, takes multiple softeners/laxatives); Denies: hematemesis, dysphagia or hematochezia : Reports: oliguria Musc: Reports: extremity pain (left hip, not new); Denies: neck pain Neuro: Reports: weakness in extremities (general more so than focal), sensory changes (left arm numb at times), difficulty walking, frequent falls and dizziness; Denies: headache(s), confusion or Slurred speech present Smith/Lymph: Denies: easy bleeding Medications/Allergies Home Medications Medication Instructions Recorded Confirmed Last Taken Type citalopram 10 mg tablet 10 mg PO DAILY 12/30/20 08/15/24 08/15/24 History ezetimibe 10 mg tablet 10 mg PO DAILY 12/30/20 08/15/24 08/15/24 History gabapentin 300 mg capsule 300 mg PO DAILY 12/30/20 08/15/24 08/15/24 History isosorbide mononitrate 60 mg 60 mg PO BID 12/30/20 08/15/24 08/15/24 History tablet,extended release 24 hr metoprolol tartrate 100 mg tablet 100 mg PO BID 12/30/20 08/15/24 08/15/24 History nitroglycerin 0.4 mg sublingual 0.4 mg sublingual Q5M PRN Chest 12/30/20 08/15/24 01/28/21 History tablet Pain potassium chloride 10 mEq 10 meq PO BID 12/30/20 08/15/24 08/15/24 History capsule,extended release spironolactone 25 mg tablet 25 mg PO DAILY 12/30/20 08/15/24 08/15/24 History aspirin 325 mg tablet (Tanya 325 mg PO DAILY 08/12/24 08/15/24 08/15/24 History Aspirin) celecoxib 200 mg capsule 200 mg PO DAILY 08/12/24 08/15/24 08/15/24 History clopidogrel 75 mg tablet 75 mg PO DAILY 08/12/24 08/15/24 08/15/24 History semaglutide 2 mg/dose (8 mg/3 mL) 2 mg SUBCUT Q7D 08/12/24 08/15/24 08/15/24 History subcutaneous pen injector (Ozempic) pantoprazole 40 mg tablet,delayed 40 mg PO BID 08/15/24 08/15/24 08/15/24 History release rosuvastatin 20 mg tablet 20 mg PO DAILY 08/15/24 08/15/24 08/15/24 History Allergies Allergy/AdvReac Type Severity Reaction Status Date / Time codeine Allergy Severe ADR-Chest Verified 02/14/21 14:27 Pain egg Allergy Severe ADR-Vomitin Verified 02/14/21 14:27 g morphine Allergy Severe Unconscious Verified 02/14/21 14:27 tramadol Allergy Severe ALGY-Rash Verified 02/14/21 14:27 PFSH Acute 2 PFSH: Medical History (Updated 08/15/24 @ 19:37 by Margarita Oliver MD) Diabetes mellitus, type II Hypertension 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 in 06/2024 Right adrenal mass myelolipoma present since 2018, 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 Liver lesion, right lobe calcified density present since at least 2018 in inferomedical right lobe of liver Aneurysm of infrarenal abdominal aorta saccular aneurysm per radiology, aorta diameter 2 cm 06/2024 History of cardiovascular stress test 07/2020 History of cardiac arrest during hysterectomy Hyperlipidemia Depression History of coronary angiogram GERD (gastroesophageal reflux disease) COPD (chronic obstructive pulmonary disease) CAD (coronary artery disease) Colon polyp Surgical History (Updated 08/15/24 @ 13:35 by Margarita Oliver MD) History of coronary artery stent placement history of in-stent re-stenosis S/P CABG x 2 (2007) History of surgical amputation of finger History of hysterectomy History of laparotomy History of cholecystectomy History of colonoscopy 2020 History of surgery on wrist History of esophagogastroduodenoscopy (EGD) 2020 Family History (Updated 08/15/24 @ 13:35 by Margarita Oliver MD) Father CAD (coronary artery disease) Social History (Updated 08/15/24 @ 19:31 by Margarita Oliver MD) Smoking and tobacco/nicotine status: former use of tobacco/nicotine Quit status (tobacco/nicotine): has quit using Year quit tobacco: 2018 Vitals/I&O/Wt Last Vital Signs Temp 98.3 F 08/15/24 11:07 Pulse 72 08/15/24 13:03 Resp 15 08/15/24 13:03 BP 152/80 08/15/24 13:03 Pulse Ox 94 08/15/24 13:03 O2 Del Method Room Air 08/15/24 13:03 Weight last 48 hrs Weight 70.76 kg Physical Exam 2 Narrative: Patient is lying in bed on her right side with her eyes closed. She responds to verbal stimuli and is able to open her eyes and make eye contact. Normocephalic. No photophobia. With extraocular movements dizziness is elicited. With any type of head movement dizziness is elicited to the point that she has to close her eyes making it difficult to evaluate. No vomiting during my examination but extensive nausea. Face is symmetric, speech is clear. Right tympanic membrane with a clear light reflex. Left tympanic membrane is predominantly blocked by cerumen. I am unable to get a clear light reflex. Oral mucosa are dry. Neck is supple. Lungs are clear to auscultation bilaterally without any rales rhonchi or wheezes. Cardiovascular exam reveals a regular rate and rhythm. Abdomen is soft, nontender with positive bowel sounds. No pitting edema to distal extremities. 2+ radial and pedal pulses. Skin is dry. Data 08/15/24 11:11 08/15/24 11:11 Other Labs: Radiology Impressions Head CT 08/15/24 11:11 IMPRESSION: 1. No acute intracranial hemorrhage or edema. 2. Mild bilateral frontal lobe atrophy and small vessel disease. 3. No edema or interval change in the occipital lobe. Laboratory Results WBC 7.56 10^3/uL (3.29-11.43) 08/15/24 11:11 RBC 4.81 10^6/uL (3.85-5.65) 08/15/24 11:11 Hgb 14.20 g/dL (11.27-16.99) 08/15/24 11:11 Hct 42.9 % (36-47) 08/15/24 11:11 MCV 89.2 fl (85-98) 08/15/24 11:11 MCH 29.5 pg (27-33) 08/15/24 11:11 MCHC 33.1 g/dL (30-55) 08/15/24 11:11 RDW 13.1 % (12.1-15.1) 08/15/24 11:11 Plt Count 217 10^3/cmm (157-399) 08/15/24 11:11 MPV 12.3 fL (7.4-10.4) H 08/15/24 11:11 Neut % (Auto) 78.6 % 08/15/24 11:11 Lymph % (Auto) 15.7 % 08/15/24 11:11 [place] % (Auto) 4.5 % 08/15/24 11:11 Eos % (Auto) 0.5 % 08/15/24 11:11 Baso % (Auto) 0.4 % 08/15/24 11:11 Neut # (Auto) 5.94 10^3/uL (1.8-7.7) 08/15/24 11:11 Lymph # (Auto) 1.2 10^3/uL (0.8-4.8) 08/15/24 11:11 [place] # (Auto) 0.3 10^3/uL (0.2-0.9) 08/15/24 11:11 Eos # (Auto) 0.0 10^3/uL (0.0-0.8) 08/15/24 11:11 Baso # (Auto) 0.0 10^3/uL (0.0-0.1) 08/15/24 11:11 Nucleated RBC % (auto) 0 % 08/15/24 11:11 Nucleated RBCs # 0.0 /100WBC 08/15/24 11:11 Sodium 140 mmol/L (136-145) 08/15/24 11:11 Potassium 3.7 mmol/L (3.5-5.1) 08/15/24 11:11 Chloride 100 mmol/L (98-107) 08/15/24 11:11 Carbon Dioxide 24 mmol/L (22-29) 08/15/24 11:11 Anion Gap 19.7 (5-19) H 08/15/24 11:11 BUN 8 mg/dL (8-23) 08/15/24 11:11 Creatinine 0.9 mg/dL (0.5-0.9) 08/15/24 11:11 GFR Calculation 63.7 mL/min (90-130) L 08/15/24 11:11 Glucose 127 mg/dL (65-115) H 08/15/24 11:11 Calculated Osmolality 290 mOsm/kg (285-295) 08/15/24 11:11 Calcium 9.6 mg/dL (8.5-10.5) 08/15/24 11:11 Total Bilirubin 1.3 mg/dL (0.15-1.2) H 08/15/24 11:11 AST 22 U/L (0-32) 08/15/24 11:11 ALT 10 U/L (0-33) 08/15/24 11:11 Alkaline Phosphatase 82 U/L (35-105) 08/15/24 11:11 Total Protein 7.7 g/dL (6.6-8.7) 08/15/24 11:11 Albumin 4.4 g/dL (3.5-5.2) 08/15/24 11:11 Globulin 3.3 g/dL (1.3-4.6) 08/15/24 11:11 MRI 08/12/2024 FINDINGS: Brain: Bilateral periventricular white matter foci of high FLAIR signal, consistent with mild form of chronic ischemic small vessel disease. There is a chronic left basal ganglia lacunar infarct versus prominent perivascular space. No intracranial bleed. No acute infarct. No intracranial mass. Cerebral ventricles: Normal. No ventriculomegaly. Bones: Unremarkable. Paranasal sinuses: Mucosal disease of the left maxillary sinus. Mastoid air cells: Normal as visualized. No mastoid effusion. Orbital cavities: Unremarkable. Soft tissues: Unremarkable. MR/MR head wo con* [id number] IMPRESSION: No acute infarct, intracranial bleed or mass. CTA Head & Neck 08/12/2024 IMPRESSION: Severe stenosis involving the distal right vertebral artery. This does appear to be the main supply of the basilar artery. The distal right vertebral artery has cerebellar branches with a small thin branch hoping to supply the basilar artery. IMPRESSION: Moderate right proximal internal carotid artery stenosis - 50-60% CT Lumbar and Thoracic Spine 08/12/2024 IMPRESSION: 1. No acute fracture or dislocation. 2. Disc bulge with left paracentral protrusion at L4-L5 causing moderate to severe thecal sac compression moderate narrowing of bilateral neural foramina. IMPRESSION: No acute findings. ECHO 08/13/2024 CONCLUSIONS Normal left ventricle systolic function. LVEF estimated normal 65%. Normal right ventricle size and systolic function. No significant valvular abnormality noted. Normal right heart and pulmonary pressures. Laboratory Tests from Hospital Stay 08/12-08/13/2024 08/12/24 08/12/24 08/13/24 10:08 12:22 04:24 INR 1.04 Hemoglobin A1c 5.5 Magnesium 1.4 L Triglycerides 80 Cholesterol 134 LDL Cholesterol, Calc 51 HDL Cholesterol 67 LDL/HDL Ratio 0.76 Cholesterol/HDL Ratio 2.00 TSH 2.18 U Marijuana (THC) Screen Positive H A&P Assessment and plan (1) Acute posterior circulation transient ischemic attack: Initially identified on August 12, though symptoms had begun prior to that. She was discharged on August 13 but symptoms have continued to worsen to the point that she has not been able to keep down oral intake, medications or fluids and she is also requiring significant assistance to get around the house. Posterior circulation stroke either primary or secondary event are most concerning within the differential to address though has already been evaluated and risk factor control and symptom management primary options at this point in time. No lesion appeared on MRI imaging the other day, but small areas of ischemia may not be apparent. She does have known right vertebral artery stenosis with a thin vessel feeding the basilar artery but not currently amendable to intervention. Based on available history and examination I am leaning towards a central rather than peripheral process but other diagnoses within the differential include vestibular neuritis, labyrinthitis. I do also wonder if some of the vomiting may be related to decreased GI transit from Ozempic and her constipation issues. She has not been able to keep down her citalopram the last few days and at risk for withdrawal that could worsen the vertigo that she is already having. Given severity of dizziness in addition to GI symptoms, cyclical vomiting seems less likely. No evidence of any mass on multiple cerebral imaging studies. Currently appears dehydrated, which is likely contributing to worsened symptom presentation as well. (2) Hypertension: Chronically on isosorbide mononitrate, metoprolol tartrate and spironolactone Qualifiers: Hypertension type: primary hypertension Qualified Code(s): I10 - Essential (primary) hypertension (3) Hyperlipidemia: Chronically on rosuvastin, dose recently increased to 20mg day, and on zetia, acceptable values 08/12/2024 Qualifiers: Hyperlipidemia type: mixed hyperlipidemia Qualified Code(s): E78.2 - Mixed hyperlipidemia (4) Diabetes mellitus, type II: Chronically on ozempic, A1c 5.5 08/12/24, also takes gabapentin for neuropathy Qualifiers: Diabetes mellitus intermediate insulin use: without intermediate use Diabetes mellitus complication status: with neurologic complications Diabetes mellitus complication detail: with polyneuropathy Qualified Code(s): E11.42 - Type 2 diabetes mellitus with diabetic polyneuropathy (5) CAD (coronary artery disease): Chronically on aspirin and plavix, as needed nitroglycerin Qualifiers: Coronary Disease-Associated Artery/Lesion type: bypass graft [place] vs. transplanted heart: [place] heart Associated angina: without angina Qualified Code(s): I25.810 - Atherosclerosis of coronary artery bypass graft(s) without angina pectoris (6) Hypomagnesemia: Present on admission (7) Depression: Chronically on citalopram (8) GERD (gastroesophageal reflux disease): Chronically on Protonix Plan Chronically on celcoxib for pain in left hip and low back Observation admission for now Serial Neuro Exams Repeat MRI imaging to include internal auditory canals as per discussion with neurolgy Neurology consultation Serial neuro exams Had PT/INR checked 08/12 along with lipid panel and A1c On 325mg aspirin daily along with plavix, statin dosing increased to 20mg daily last stay, all continued Has not been able to keep blood pressure medications down and BPs are in normal range currently, will allow permissive hypertension for a bit longer given the severity of symptoms currently, holding spironolactone, giving half usual isosorbide and half usual beta blockade for now Telemetry monitoring Get EKG Start meclizine, prn zofran as needed, prn ativan for persistent symptoms IVFs x 2 liters Replace Magnesium Holding Ozempic, sliding scale insulin if needed - I discussed with patient that she may want to review decreased dose with her primary care provider given significance of constipation and normalized A1c. Holding home celecoxib currently Holding home potassium and zetia Scheduled and as needed stool softners/laxatives Supportive care otherwise VTE prophylaxis: Lovenox Antibiotics: none Pending studies: MRI head/internal auditory canal read, EKG. urinalysis (not collected) Telemetry: ordered due to symptoms and history for monitoring next 24 hours given changes to cardiac medications [place]: not currently indicated Line(s): peripheral IVs Disposition plan: Home with outpatient follow up, both specialty and primary care, anticipated, along with possible OT/PT, Though ultimately will depend on clinical course given the severity of her symptoms Code Status: Full Code Supportive care otherwise Findings, concerns and plans were discussed with patient and her partner present in the room and they were given an opportunity to ask questions Attestations 2 Medical Necessity Statement*: Currently anticipate a stay less than two midnights in this patient presenting with persistent nausea, vomiting and vertigo symptoms again. She has evidence of dehydration supported by her history of not being able to keep anything down and may respond to fluids along with initiation of antiemetic treatment along with meclizine. She is at risk of injury from falls with her severe vertigo currently, worsening dehydration with inability to maintain oral intake, and along with significant comorbid conditions that are not being adequately treated due to her inability to take medications by mouth, she is at risk of other acute events, particularly cardiovascular event, on top of what appears to be posterior circulation stroke as described. Coding Level of Care Code 63439 High Time for a total of 85 minutes, includes reviewing past or interval history, examining/interviewing patient, placing orders, counseling patient/family/other support, discussing plan of care with staff and documenting encounter Diagnoses Acute posterior circulation transient ischemic attack G45.8 Primary hypertension I10 Hypertension type: primary hypertension Mixed hyperlipidemia E78.2 Hyperlipidemia type: mixed hyperlipidemia Type 2 diabetes mellitus with diabetic polyneuropathy, without long-term current use of insulin E11.42 Diabetes mellitus intermediate insulin use: without intermodal truck driver use Diabetes mellitus complication status: with neurologic complications Diabetes mellitus complication detail: with polyneuropathy Coronary artery disease involving coronary bypass graft of [place] heart without angina pectoris I25.810 Coronary Disease-Associated Artery/Lesion type: bypass graft [place] vs. transplanted heart: [place] heart Associated angina: without angina Hypomagnesemia E83.42 Depression F32.A GERD (gastroesophageal reflux disease) K21.9
[2024-08-15 14:19] LABS: Magnesium 1.5 mg/dL (1.7-2.3)
[2024-08-15] MEDS: acetaminophen 500 mg Tablet 1000 MG PO (14:53)
--- NOTE | 2024-08-15 15:11 | MRR_ITS ---
PROCEDURE INFORMATION: Exam: MR Head Without and With Contrast Exam date and time: 08/15/2024 5:00 PM Age: 63 years old Clinical indication: Dizziness; Additional info: Persisitent vertigo, severe, had MR brain 08/12, concern for posterior stroke but was TECHNIQUE: Imaging protocol: Magnetic resonance imaging of the head without and with contrast. Contrast material: GADOLINIUM; Contrast volume: 16 ml; Contrast route: INTRAVENOUS (IV); COMPARISON: CT head wo con* [id number] 08/15/2024 11:26 AM FINDINGS: Brain: Very mild periventricular and deep white matter T2 FLAIR hyperintensities compatible with sequela of very mild chronic microvascular ischemic changes. No evidence of diffusion restriction to suggest acute ischemia. No mass, mass effect or midline shift. No evidence of abnormal enhancement. Cranial nerves are unremarkable. No evidence of neural lesion. Cerebral ventricles: No hydrocephalus. Bones: Unremarkable. Paranasal sinuses: The visualized paranasal sinuses are well aerated. Mastoid air cells: The mastoids and middle ears are grossly clear without evidence of effusion. Orbital cavities: The visualized orbits are unremarkable. Soft tissues: Grossly unremarkable. MR/MR iac's wo/w con* [id number] IMPRESSION: 1. No evidence of acute intracranial abnormality.
--- NOTE | 2024-08-15 15:59 | P.CONIM_ITS ---
Providers/Reason For Consult 2 Consulting Physician/Specialty*: Robert Diaz MD neurology and epilepsy Reason for Consult*: Posterior circulation stroke Attending Physician: Margarita Oliver MD Primary Care Provider: Ericka Wolfe MD History of Present Illness History of Present Illness Loyda Roldan is a 63 year old female who was evaluated by the stroke team at [facility] recently. Patient was diagnosed with posterior circulation stroke. Patient was discharged to home without physical therapy and presented back to [facility] emergency department complaining of severe vertigo with nausea and vomiting. Head MRI prior to discharge was obtained and reported to be negative on 08/12/2024. The patient was reported to be started on aspirin and Plavix prior to discharge but returned with severe nausea and vomiting and dizziness and inability to take her medications secondary to severe nausea and vomiting. In view of the patient's complaints of severe nausea and vomiting concerns of posterior circulation stroke were again raised versus inner ear abnormality. Therefore neurology consult was requested. Drug allergies: Codeine which resulted in chest pain Aches which resulted in vomiting Morphine which resulted in loss of consciousness Tramadol which resulted in a rash Current medications: Aspirin 3 and 25 mg p.o. daily Plavix 75 mg p.o. daily Ezetimibe 10 mg p.o. daily Celebrex 200 mg p.o. daily Celexa 10 mg p.o. daily Neurontin 300 mg p.o. daily Isosorbide mononitrate ER 60 mg p.o. twice daily Metoprolol 100 mg p.o. twice daily Sublingual nitroglycerin 0.4 mg every 5 minutes as needed for chest pain Ozempic 2 mg subcutaneously every 7 days 8 Protonix 40 mg p.o. twice daily Potassium chloride 10 mill equivalents p.o. daily Crestor 20 mg p.o. daily Spironolactone 25 mg p.o. daily Past medical history: Posterior circulation stroke Hyperlipidemia Gastroesophageal reflux disease Recurrent fall Diabetes mellitus Ex-smoker Vertigo Habits: The patient reports being a former smoker but quit 2 years ago. The patient denied other drug use Family history: Remarkable for paternal grandmother with stroke Remarkable for father with heart disease Review of Systems 2 General: Reports: 10 or more systems reviewed and unremarkable except in HPI and below Medications/Allergies Home Medications Medication Instructions Recorded Confirmed Last Taken Type citalopram 10 mg tablet 10 mg PO DAILY 12/30/20 08/15/24 08/15/24 History ezetimibe 10 mg tablet 10 mg PO DAILY 12/30/20 08/15/24 08/15/24 History gabapentin 300 mg capsule 300 mg PO DAILY 12/30/20 08/15/24 08/15/24 History isosorbide mononitrate 60 mg 60 mg PO BID 12/30/20 08/15/24 08/15/24 History tablet,extended release 24 hr metoprolol tartrate 100 mg tablet 100 mg PO BID 12/30/20 08/15/24 08/15/24 History nitroglycerin 0.4 mg sublingual 0.4 mg sublingual Q5M PRN Chest 12/30/20 08/15/24 01/28/21 History tablet Pain potassium chloride 10 mEq 10 meq PO BID 12/30/20 08/15/24 08/15/24 History capsule,extended release spironolactone 25 mg tablet 25 mg PO DAILY 12/30/20 08/15/24 08/15/24 History aspirin 325 mg tablet (Tanya 325 mg PO DAILY 08/12/24 08/15/24 08/15/24 History Aspirin) celecoxib 200 mg capsule 200 mg PO DAILY 08/12/24 08/15/24 08/15/24 History clopidogrel 75 mg tablet 75 mg PO DAILY 08/12/24 08/15/24 08/15/24 History semaglutide 2 mg/dose (8 mg/3 mL) 2 mg SUBCUT Q7D 08/12/24 08/15/24 08/15/24 History subcutaneous pen injector (Ozempic) pantoprazole 40 mg tablet,delayed 40 mg PO BID 08/15/24 08/15/24 08/15/24 History release rosuvastatin 20 mg tablet 20 mg PO DAILY 08/15/24 08/15/24 08/15/24 History Allergies Allergy/AdvReac Type Severity Reaction Status Date / Time codeine Allergy Severe ADR-Chest Verified 02/14/21 14:27 Pain egg Allergy Severe ADR-Vomitin Verified 02/14/21 14:27 g morphine Allergy Severe Unconscious Verified 02/14/21 14:27 tramadol Allergy Severe ALGY-Rash Verified 02/14/21 14:27 PFSH Acute 2 PFSH: Medical History (Updated 08/15/24 @ 16:10 by Robert Brown MD) History of cardiovascular stress test 07/2020 History of cardiac arrest during hysterectomy Hyperlipidemia Depression History of coronary angiogram GERD (gastroesophageal reflux disease) COPD (chronic obstructive pulmonary disease) CAD (coronary artery disease) Colon polyp Surgical History (Updated 08/15/24 @ 13:35 by Margarita Oliver MD) History of coronary artery stent placement history of in-stent re-stenosis S/P CABG x 2 (2007) History of surgical amputation of finger History of hysterectomy History of laparotomy History of cholecystectomy History of colonoscopy 2020 History of surgery on wrist History of esophagogastroduodenoscopy (EGD) 2020 Family History (Updated 08/15/24 @ 13:35 by Margarita Oliver MD) Father CAD (coronary artery disease) Social History (Updated 08/15/24 @ 13:36 by Margarita Oliver MD) Smoking and tobacco/nicotine status: former use of tobacco/nicotine Quit status (tobacco/nicotine): has quit using Year quit tobacco: 2017 Vitals/I&O/Wt Last Vital Signs Temp 98.3 F 08/15/24 11:07 Pulse 80 08/15/24 14:58 Resp 18 08/15/24 14:58 BP 152/80 08/15/24 13:03 Pulse Ox 97 08/15/24 14:58 O2 Del Method Room Air 08/15/24 14:58 Weight last 48 hrs Weight 156 lb Physical Exam 2 Narrative: The patient is alert and oriented x 3. Speech fluent. Patient reported severe vertigo. Head atraumatic. Neck supple. Cranial nerves II through XII intact except for complaints of severe vertigo and nausea. There were no obvious nystagmus on extraocular movements. But, patient did report more dizziness and vertigo with extraocular movement testing. Visual grayson appear to be full via confrontation. Motor testing grossly nonfocal at 5/5. Plantar responses flexor bilaterally. There was no clonus. Sensory examination was intact to gross modalities. Throat clear. Lungs clear. Heart regular rhythm and rate. Extremities were negative for cyanosis Data 08/15/24 11:11 08/15/24 11:11 A&P Assessment and plan (1) Posterior circulation stroke: Impression: 1. Clinical examination suggestive of a posterior circulation stroke versus inner ear abnormality Plan: 1. Recommend obtaining noncontrast head MRI to assess for posterior circulation stroke 2. Recommend head MRI with contrast of the internal auditory canals bilaterally to assess for inner ear abnormality 3. Agree with current treatment plan 4. Neurochecks and vital signs per [facility] stroke protocol 5. Fall precautions 6. Provide patient with stroke information and stroke pamphlet 7. Agree with medications for nausea and vomiting and dizziness 8. Consider Antivert 25 mg p.o. every 6 hours as needed for dizziness (2) Vertigo: Consult Attestations 2 Medical Necessity Statement: The patient was evaluated by neurology for severe vertigo and balance difficulty and falling and nausea assess for posterior circulation stroke Coding Level of Care Code 32952 Diagnoses Posterior circulation stroke I63.50 Vertigo R42
[2024-08-15] MEDS: gadobenate dimeglumine 20 mL vial 16 ML IV (17:37)
[2024-08-15 18:33] LABS: Glucose Point of Care 111 mg/dL (70-110)
[2024-08-15] MEDS: magnesium sulfate premix 2 GM/50 ML PIGGYBACK IV (18:43)
[2024-08-15] MEDS: sodium chlor 0.9% + KCl 20 mEq 20 MEQ/1,000 ML BAG 125 MEQ IV (18:43)
[2024-08-15] MEDS: pantoprazole DR 40 mg Tablet PO (19:20)
[2024-08-15] MEDS: magnesium lactate 84 mg Tablet PO (19:20)
[2024-08-15] MEDS: enoxaparin 40 mg/0.4 mL Syringe SUBCUT (19:20)
[2024-08-15] MEDS: citalopram 20 mg Tablet 10 MG PO (19:20)
--- NOTE | 2024-08-15 19:22 | ECG_ITS ---
[facility] Date: 2024-08[facility]15 Pat Name: Loyda Roldan Department: Room: 263 Gender: Female Metal Mover: : 1960 Requested By: Margarita Oliver Order Number: [id number] Zimmerman MD: Lori Abbott M.D. Measurements Intervals [place] Rate: 88 P: 48 GA: 143 QRS: 35 QRSD: 86 T: 57 QT: 382 QTc: 464 Interpretive Statements SINUS RHYTHM NONSPECIFIC ST & T-WAVE ABNORMALITY Compared to ECG 08/12/2024 13:22:04 T-wave abnormality now present Electronically Signed On 08-19-2024 16:06:19 TRADING MANAGER by Lori Abbott M.D. [id number]
[2024-08-15 20:02] LABS: Bilirubin Urine Negative (Negative); Blood Urine Negative (Negative); Glucose Urine UA Negative (Normal); Ketones Urine 1+ (Negative); Leukocyte Esterase Urine Trace (Negative); Nitrate Urine Negative (Negative); Protein Urine 1+ (Negative); Urine Appearance Clear (CLEAR); Urine Color Yellow (Yellow); pH Urine 5.5 (5-7)
[2024-08-15 20:08] LABS: Add Urine Microscopic? YES; Bacteria Urine 3+ /hpf; Hyaline Casts Urine 4.95 /lpf; Squamous Epithelial Cell Urine 0-5 /hpf (0-5); WBC Urine 21-50 /hpf (0-5)
[2024-08-15 20:14] LABS: Specific Gravity, Urine 1.033 (1.005-1.030)
[2024-08-15 20:15] LABS: Add Urine Culture? Yes
[2024-08-15 20:19] LABS: Glucose Point of Care 107 mg/dL (70-110)
[2024-08-16] VITALS (7 sets, daily range): BP systolic 148–176; BP diastolic 75–93; PULSE 80–97; RESP 16–24; TEMP 36.4–36.9; O2SAT 93–98
--- NOTE | 2024-08-16 04:55 | PC.NURSE ---
This RN went to give this pt her 2100 medications and the pt and her said don't even waste your time, its just going to come back up. This RN educated the pt about the importance of the medications and how they could even make her feel better. Pt and her still refused the medication and just wanted something to help the pt sleep.
[2024-08-16] MEDS: sodium chlor 0.9% + KCl 20 mEq 20 MEQ/1,000 ML BAG 125 MEQ IV (05:30)
[2024-08-16 05:52] LABS: Alanine Aminotransferase 11 U/L (0-33); Albumin Level 4.1 g/dL (3.5-5.2); Alkaline Phosphatase 75 U/L (35-105); Aspartate Amino Transferase 23 U/L (0-32); Blood Urea Nitrogen 12 mg/dL (8-23); Calcium 9.1 mg/dL (8.5-10.5); Carbon Dioxide 21 mmol/L (22-29); Chloride 103 mmol/L (98-107); Creatinine Clr Calc Pharmacy 67.8294; Globulin 3.1 g/dL (1.3-4.6); Glomerular Filtration Rate 72.9 mL/min (90-130); Glucose 91 mg/dL (65-115); Magnesium 2.3 mg/dL (1.7-2.3); Osmolality Calculated 287 mOsm/kg (285-295); Sodium 139 mmol/L (136-145); Total Bilirubin 1.1 mg/dL (0.15-1.2); Total Protein 7.2 g/dL (6.6-8.7)
[2024-08-16] MEDS: ondansetron 2 mg/ML SDV 2 mL 4 MG IVP ×2 (06:04→23:52)
[2024-08-16 06:42] LABS: Glucose Point of Care 82 mg/dL (70-110)
--- NOTE | 2024-08-16 10:22 | PC.CHAP ---
Pastoral Care Encounter/Spiritual Assessment Type of Contact [] Declined consulting group analyst visit [] Patient/Family/Request visit [] Outpatient visit [] Follow-up visit [] Physician referral [] Code/Alert [x] Routine visit [] Staff referral [] Actively dying [] Patient sleeping [x] Family support [] [] Out of room [] Palliative care [] [] Receiving care in room [] Pre-surgical visit [] Trauma [] Long length of stay [] ICU visit [] Other: Relational/Emotional Strength [x] Patient feels connected with others/family/visitors/staff [] Distress [] Loneliness/isolation [] Abandonment Spirituality of Patient [x] Person of Patricia [] Attends Adventism of their Patricia [x] Believes in Prayer [] Reads Bible or Anabaptism materials [] There are Spiritual issues to be addressed Mass Spec Interventions [x] Prayer [x] Active listening [] Non-anxious presence [x] Spiritual/emotional support [] Crisis/trauma care [] Spiritual counseling [] Bereavement support [] Provided bereavement packet [] Provided Bible/devotional materials [] Provided toy/stuffed animal, coloring book to patient or family member [] Provided Communion [] Anointing/[place] [] Salvation [x] Completed spiritual assessment [] Other: Impact on Illness or Injury [] Angry [] Fearful [] Anxious [] Often cries [] Exhaustion [] Unable to work [] Unable to attend orthodox [] Unable to walk/stand [] Unable to read [] Unable to drive [] Unable to eat/drink [] Unable to sleep [] Unable to be with family [] Patient intubated [] Other: Summary Time spent with patient 5 min
[2024-08-16 11:30] LABS: Glucose Point of Care 92 mg/dL (70-110)
[2024-08-16] MEDS: ketorolac 30 mg/mL INJ 15 MG IVP (12:07)
--- NOTE | 2024-08-16 12:31 | P.PN_ITS ---
Subjective 2 Subjective: Follow-up hospital visit 08/16/2024 History of present illness: Loyda Roldan is a 63 year old female who was evaluated by the stroke team at [facility] recently. Patient was diagnosed with posterior circulation stroke. Patient was discharged to home without physical therapy and presented back to [facility] emergency department complaining of severe vertigo with nausea and vomiting. Head MRI prior to discharge was obtained and reported to be negative on 08/12/2024. The patient was reported to be started on aspirin and Plavix prior to discharge but returned with severe nausea and vomiting and dizziness and inability to take her medications secondary to severe nausea and vomiting. In view of the patient's complaints of severe nausea and vomiting concerns of posterior circulation stroke were again raised versus inner ear abnormality. Therefore neurology consult was requested. Head MRI without contrast done 08/15/2024 was negative for posterior circulation stroke. MRI with and without contrast of the internal auditory canals was negative for obvious abnormality. The patient continues to report dizziness and nausea as well as 3 of migraine today the patient exam remains unchanged. Patient continues to report dizziness. Patient also reported severe nausea. According to the patient's nurse, the patient has been unable to take any oral medications and therefore Antivert has not been used. I spoke with the attending physician and recommended trying scopolamine patch if no contraindication from cardiac standpoint, also consider Phenergan compound jel or cream to apply to the patient's risk and rub in every 4-6 hours for nausea vomiting or dizziness/vertigo or consider low-dose intravenous Valium 1 to 2 mg IV every 6 hours as needed dizziness/vertigo. Potential side effects of the above 3 medications were discussed with the patient and the patient who was present at the patient[facility] Drug allergies: Codeine which resulted in chest pain Aches which resulted in vomiting Morphine which resulted in loss of consciousness Tramadol which resulted in a rash Current medications: Aspirin 3 and 25 mg p.o. daily Plavix 75 mg p.o. daily Ezetimibe 10 mg p.o. daily Celebrex 200 mg p.o. daily Celexa 10 mg p.o. daily Neurontin 300 mg p.o. daily Isosorbide mononitrate ER 60 mg p.o. twice daily Metoprolol 100 mg p.o. twice daily Sublingual nitroglycerin 0.4 mg every 5 minutes as needed for chest pain Ozempic 2 mg subcutaneously every 7 days Protonix 40 mg p.o. twice daily Potassium chloride 10 mill equivalents p.o. daily Crestor 20 mg p.o. daily Spironolactone 25 mg p.o. daily Past medical history: Posterior circulation stroke Hyperlipidemia Gastroesophageal reflux disease Recurrent fall Diabetes mellitus Ex-smoker Vertigo Habits: The patient reports being a former smoker but quit 2 years ago. The patient denied other drug use Family history: Remarkable for paternal grandmother with stroke Remarkable for father with heart disease Review of Systems General: Reports: 10 or mor e systems reviewed and unremarkable except in HPI and below Vitals/I&O/Wt Last Vital Signs Temp 98.0 F 08/16/24 12:00 Pulse 81 08/16/24 12:00 Resp 20 H 08/16/24 12:00 BP 176/75 08/16/24 12:00 Pulse Ox 97 08/16/24 12:00 O2 Del Method Room Air 08/16/24 12:00 08/15/24 08/16/24 08/16/24 22:59 06:59 14:59 Intake Total 50 / 50 1000 / 1050 Output Total 120 / 120 Balance -70 / -70 1000 / 930 Weight last 48 hrs Weight 134 lb 9 oz Weight 155 lb Weight 156 lb Physical Exam 2 Narrative: The patient is alert and oriented x 3. Speech fluent. Patient reported severe vertigo. Head atraumatic. Neck supple. Cranial nerves II through XII intact except for complaints of severe vertigo and nausea. There were no obvious nystagmus on extraocular movements. But, patient did report more dizziness and vertigo with extraocular movement testing. Visual grayson appear to be full via confrontation. Motor testing grossly nonfocal at 5/5. Plantar responses flexor bilaterally. There was no clonus. Sensory examination was intact to gross modalities. Throat clear. Lungs clear. Heart regular rhythm and rate. Extremities were negative for cyanosis Data 08/15/24 11:11 08/16/24 05:10 A&P Assessment and plan (1) Vertigo: Impression: 1. Severe vertigo associated with nausea and vomiting etiology unclear assess for inner ear abnormality since head CT scan, and head MRI x 2 were negative for posterior circulation stroke Plan: 1. Consider trial of low-dose intravenous Valium 1 to 2 mg every 6 hours as needed for vertigo 2. Consider scopolamine patch for vertigo if no contraindication from cardiac standpoint 3. Consider Phenergan compound or Phenergan gel if on formulary at the hospital apply 12.5 to 25 mg to risk and massage and using the other wrist every 4-6 hours as needed for vertigo 4. Agree with ENT evaluation 5. Fall precautions 6. Consider Antivert 25 mg p.o. every 6 hours as needed for dizziness once patient able to take oral medications 7. Patient stable from neurological standpoint for discharge planning once vertigo, nausea and vomiting improves 8. Recommend holding Neurontin in case this medication is contributing to the patient's vertigo/dizziness. Attestations 2 Medical Necessity Statement*: The patient was evaluated by neurology for severe vertigo nausea and vomiting. Head MRI negative for stroke Coding Level of Care Code 90963 Diagnoses Vertigo R42
[2024-08-16] MEDS: LORazepam 2 mg/mL INJ 1 mL 1 MG IVP (13:26)
[2024-08-16] MEDS: cefTRIAXone 1,000 mg SDV 1000 MG IVP (15:28)
[2024-08-16] MEDS: methylPREDNISolone sod succ 40 mg/mL INJ IVP (15:28)
--- NOTE | 2024-08-16 15:54 | P.PN_ITS ---
Subjective 2 Subjective: seen this morning pt still persistently dizzy also has a headache this morning mri IAC and head negative Vitals/I&O/Wt Last Vital Signs Temp 98.0 F 08/16/24 12:00 Pulse 81 08/16/24 12:00 Resp 20 H 08/16/24 12:00 BP 176/75 08/16/24 12:00 Pulse Ox 97 08/16/24 12:00 O2 Del Method Room Air 08/16/24 12:00 08/16/24 08/16/24 08/16/24 06:59 14:59 22:59 Intake Total 1000 / 1050 1000 / 1000 Balance 1000 / 930 1000 / 1000 Weight last 48 hrs Weight 61.037 kg Weight 70.307 kg Weight 70.76 kg Physical Exam 2 Narrative: General: Alert oriented x3, patient seen laying in bed appearing comfortable at this time. HEENT: Normocephalic, atraumatic, EOMI, room air. Cardio: Regular rate rhythm, normal S1-S2, Respiratory: Good bilateral air entry, no wheezes no rhonchi appreciated GI: Abdomen soft, nontender, nondistended, bowel sounds + Extremities: No edema bilateral extremities Neuro: Nonfocal.. Data 08/15/24 11:11 08/16/24 05:10 A&P Assessment and plan (1) S/P CABG x 2: (2) GERD (gastroesophageal reflux disease): (3) Hyperlipidemia: Qualifiers: Hyperlipidemia type: mixed hyperlipidemia Qualified Code(s): E78.2 - Mixed hyperlipidemia (4) Ex-smoker: (5) Diabetes mellitus: (6) Vertigo: (7) Vertebral artery stenosis: Plan #Severe vertigo #CAD status post PCI, history of CABG #Hyperlipidemia #Diabetes mellitus type 2 #Headache ? Continue aspirin Plavix Zetia, rosuvastatin - continue lopressor and imdur Continue citalopram celecoxib ? PT OT - echo reviewed previous admission. - mri previous admission and this admission both negative, mri iac negative - discussed with neuro - neuro to follow up with pt today ? Patient does have vertebral artery stenosis. No intervention recommended at this time by neurology however will provide vascular surgery referral at discharge ? Follow-up with ENT as an outpatient after discharge - will order solumedrol 40 iv daily for possible vestibular neuritis - ketoralac 15 mg x1 given for headache - will not recommend scopolamine patch 2/2 to cardiac hx - ssi mod dose intensity - pt/ot today - valium 1mg q6h prn added for severe vertigo and nausea - hold gabapentin - discussed with dr. salgado Full code DVT prophylaxis: Heparin subcu twice daily Attestations 2 Medical Necessity Statement*: pt still symptomatic, continue to hospitalize. Diagnoses S/P CABG x 2 Z95.1 GERD (gastroesophageal reflux disease) K21.9 Mixed hyperlipidemia E78.2 Hyperlipidemia type: mixed hyperlipidemia Ex-smoker Z87.891 Diabetes mellitus E11.9 Vertigo R42 Vertebral artery stenosis I65.09
[2024-08-16 16:47] LABS: Glucose Point of Care 83 mg/dL (70-110)
[2024-08-16] MEDS: acetaminophen 500 mg Tablet 1000 MG PO (18:48)
[2024-08-16] MEDS: calcium carbonate 500 mg Chew Tablet 1000 MG PO (20:23)
[2024-08-16] MEDS: enoxaparin 40 mg/0.4 mL Syringe SUBCUT (20:24)
[2024-08-16] MEDS: magnesium lactate 84 mg Tablet PO (20:25)
[2024-08-16] MEDS: meclizine 25 mg tablet PO (20:25)
[2024-08-16] MEDS: pantoprazole DR 40 mg Tablet PO (20:25)
[2024-08-16] MEDS: metoprolol tartrate 50 mg Tablet PO (20:25)
[2024-08-16 20:43] LABS: Glucose Point of Care 103 mg/dL (70-110)
[2024-08-17] MEDS: diazePAM 2 mg Tablet 1 MG PO (02:27)
[2024-08-17 04:00] VITALS: BP 164/79; PULSE 86; RESP 16; TEMP 36.7; O2SAT 95
[2024-08-17 05:55] LABS: Basophils % 0.1 %; Hematocrit 42.4 % (36-47); Lymphocytes # 1.2 10^3/uL (0.8-4.8); Lymphocytes % 14.3 %; Mean Corpuscular HGB Conc 32.1 g/dL (30-55); Mean Corpuscular Hemoglobin 28.6 pg (27-33); Mean Corpuscular Volume 89.1 fl (85-98); Mean Platelet Volume 12.6 fL (7.4-10.4); Monocytes # 0.3 10^3/uL (0.2-0.9); Neutrophils # 6.54 10^3/uL (1.8-7.7); Neutrophils % 81.4 %; Nucleated Red Blood Cells % 0 %; Platelet Count 216 10^3/cmm (157-399); Red Blood Count 4.76 10^6/uL (3.85-5.65); Red Cell Distribution Width 13.2 % (12.1-15.1); White Blood Count 8.04 10^3/uL (3.29-11.43)
[2024-08-17 06:23] LABS: Glucose Point of Care 87 mg/dL (70-110)
[2024-08-17 06:24] LABS: Anion Gap 17.8 (5-19); Blood Urea Nitrogen 22 mg/dL (8-23); Calcium 9.5 mg/dL (8.5-10.5); Carbon Dioxide 23 mmol/L (22-29); Chloride 103 mmol/L (98-107); Creatinine Clr Calc Pharmacy 62.5414; Glomerular Filtration Rate 72.9 mL/min (90-130); Glucose 97 mg/dL (65-115); Magnesium 2.1 mg/dL (1.7-2.3); Osmolality Calculated 293 mOsm/kg (285-295); Potassium 3.8 mmol/L (3.5-5.1); Sodium 140 mmol/L (136-145)
[2024-08-17 07:33] VITALS: BP 148/72; PULSE 77; RESP 16; TEMP 36.8; O2SAT 97
[2024-08-17] MEDS: aspirin 325 mg Tablet PO (10:00)
[2024-08-17] MEDS: citalopram 20 mg Tablet 10 MG PO (10:00)
[2024-08-17] MEDS: clopidogrel 75 mg Tablet PO (10:01)
[2024-08-17] MEDS: meclizine 25 mg tablet PO ×2 (10:01→16:11)
[2024-08-17 10:40] LABS: Glucose Point of Care 77 mg/dL (70-110)
[2024-08-17 11:24] VITALS: BP 151/73; PULSE 67; RESP 17; TEMP 36.6; O2SAT 98
[2024-08-17] MEDS: acetaminophen 325 mg Tablet 650 MG PO (14:02)
[2024-08-17] MEDS: calcium carbonate 500 mg Chew Tablet 1000 MG PO (14:02)
[2024-08-17 15:12] VITALS: BP 174/78; PULSE 69; RESP 17; TEMP 36.7; O2SAT 97
--- NOTE | 2024-08-17 16:25 | PM.DCS ---
Discharge Providers Date of Admission: 08/16/24 10:17 Date of Discharge: August 17, 2024 Attending Provider at Admission: Margarita Oliver MD Attending Provider at Discharge: Jennifer Deshpande MD Primary Care Provider: Ericka Wolfe MD Diagnoses at Discharge Discharge Diagnosis (1) S/P CABG x 2: Status: Inactive (2) GERD (gastroesophageal reflux disease): Status: Chronic (3) Hyperlipidemia: Status: Chronic Qualifiers: Hyperlipidemia type: mixed hyperlipidemia Qualified Code(s): E78.2 - Mixed hyperlipidemia (4) Ex-smoker: Status: Inactive (5) Diabetes mellitus: Status: Inactive (6) Vertigo: Status: Acute (7) Vertebral artery stenosis: Status: Acute Reason for Visit Reason for Visit: N/V Hospital Course Hospital Course Loyda Roldan is a 63 year old female recebtly admitted and discharged with a suspected posterior circulation Patient was discharged to home and presented back to the hospital complaining of severe vertigo with nausea and vomiting. Head MRI prior to discharge was obtained and reported to be negative on 08/12/2024. In view of the patient's complaints of severe nausea and vomiting concerns of posterior circulation stroke were again raised versus inner ear abnormality. Therefore neurology was consulted. She underwent additional MRI with and without contrast of the internal auditory canals which was negative for obvious abnormality. The patient continued to report dizziness and nausea as well migraine and nausea. Differentials included acute labyrhthutis vs Meniere's disease. She was started on Meclizine, prn Valium and received a dose of methylprednisolone 40 mg on 08/16/2024 presumptively. The patient symptoms are much improved today. She had 2 episodes of vomiting overnight but none since then. She states that she is no longer dizzy. She was able to ambulate in the hallway today and take 2 rounds. She is eating some saltine crackers and Jell-O at the time of this examination. She feels well enough to return home today. Recommend follow-up with ENT, referral provided to Dr. Nixon. She is being discharged today with recommendations to continue her aspirin, Plavix, Zetia, rosuvastatin, Lopressor, Imdur. Gabapentin has been held in case contributing to her nausea per neurorecommendations. Short course of steroids prednisone 40 mg daily for 5 days for possible vestibular neuritis. Diazepam 1 mg p.o. every 8 hours as needed ordered for home use in addition to meclizine 25 mg 3 times daily. This documentation was created by [employer] security and compliance analyst software. Every effort was made to ensure accuracy of security and compliance analyst. Any obvious errors or omissions should be clarified with the author of the document. Physical Exam Narrative: General: No acute distress, AO x3 HEENT: PERRLA, pupils bilaterally equal and reactive, pallors not present Chest: Normal vesicular breath sounds, no added sounds, equal good air entry bilaterally CVS: S1-S2 regular, no murmurs, no tachycardia, no gallops, no rubs Abdomen: Soft, nontender, no organomegaly, bowel sounds present Neuro: No focal deficits, no facial deformity, AO x3, power 5/5 in all limbs Discharge Data Studies Completed and Pending Completed Studies During Hospitalization Category Date Time Status CT head wo con* [id number] Stat Cat Scan 08/15/24 11:11 Completed MR iac's wo/w con* [id number] Urgent MRI 08/15/24 15:11 Completed Pending at discharge Category Date Time Status Urine Culture Stat Lab 08/15/24 19:45 Results Radiology Impressions Head CT 08/15/24 11:11 IMPRESSION: 1. No acute intracranial hemorrhage or edema. 2. Mild bilateral frontal lobe atrophy and small vessel disease. 3. No edema or interval change in the occipital lobe. Internal Auditory Canal MRI 08/15/24 15:11 IMPRESSION: 1. No evidence of acute intracranial abnormality. Laboratory Results WBC 8.04 10^3/uL (3.29-11.43) 08/17/24 05:27 RBC 4.76 10^6/uL (3.85-5.65) 08/17/24 05:27 Hgb 13.60 g/dL (11.27-16.99) 08/17/24 05:27 Hct 42.4 % (36-47) 08/17/24 05:27 MCV 89.1 fl (85-98) 08/17/24 05:27 MCH 28.6 pg (27-33) 08/17/24 05:27 MCHC 32.1 g/dL (30-55) 08/17/24 05:27 RDW 13.2 % (12.1-15.1) 08/17/24 05:27 Plt Count 216 10^3/cmm (157-399) 08/17/24 05:27 MPV 12.6 fL (7.4-10.4) H 08/17/24 05:27 Neut % (Auto) 81.4 % 08/17/24 05:27 Lymph % (Auto) 14.3 % 08/17/24 05:27 [place] % (Auto) 4.0 % 08/17/24 05:27 Eos % (Auto) 0.0 % 08/17/24 05:27 Baso % (Auto) 0.1 % 08/17/24 05:27 Neut # (Auto) 6.54 10^3/uL (1.8-7.7) 08/17/24 05:27 Lymph # (Auto) 1.2 10^3/uL (0.8-4.8) 08/17/24 05:27 [place] # (Auto) 0.3 10^3/uL (0.2-0.9) 08/17/24 05:27 Eos # (Auto) 0.0 10^3/uL (0.0-0.8) 08/17/24 05:27 Baso # (Auto) 0.0 10^3/uL (0.0-0.1) 08/17/24 05:27 Nucleated RBC % (auto) 0 % 08/17/24 05:27 Nucleated RBCs # 0.0 /100WBC 08/17/24 05:27 Sodium 140 mmol/L (136-145) 08/17/24 05:27 Potassium 3.8 mmol/L (3.5-5.1) 08/17/24 05:27 Chloride 103 mmol/L (98-107) 08/17/24 05:27 Carbon Dioxide 23 mmol/L (22-29) 08/17/24 05:27 Anion Gap 17.8 (5-19) 08/17/24 05:27 BUN 22 mg/dL (8-23) 08/17/24 05:27 Creatinine 0.8 mg/dL (0.5-0.9) 08/17/24 05:27 GFR Calculation 72.9 mL/min (90-130) L 08/17/24 05:27 Glucose 97 mg/dL (65-115) 08/17/24 05:27 POC Glucose 77 mg/dL (70-110) 08/17/24 10:27 Calculated Osmolality 293 mOsm/kg (285-295) 08/17/24 05:27 Calcium 9.5 mg/dL (8.5-10.5) 08/17/24 05:27 Magnesium 2.1 mg/dL (1.7-2.3) 08/17/24 05:27 Total Bilirubin 1.1 mg/dL (0.15-1.2) 08/16/24 05:10 AST 23 U/L (0-32) 08/16/24 05:10 ALT 11 U/L (0-33) 08/16/24 05:10 Alkaline Phosphatase 75 U/L (35-105) 08/16/24 05:10 Total Protein 7.2 g/dL (6.6-8.7) 08/16/24 05:10 Albumin 4.1 g/dL (3.5-5.2) 08/16/24 05:10 Globulin 3.1 g/dL (1.3-4.6) 08/16/24 05:10 Urine Color Yellow (Yellow) 08/15/24 19:45 Urine Appearance Clear (CLEAR) 08/15/24 19:45 Urine pH 5.5 (5-7) 08/15/24 19:45 Ur Specific [place] 1.033 (1.005-1.030) H 08/15/24 19:45 Urine Protein 1+ (Negative) A 08/15/24 19:45 Urine Glucose (UA) Negative (Normal) 08/15/24 19:45 Urine Ketones 1+ (Negative) H 08/15/24 19:45 Urine Blood Negative (Negative) 08/15/24 19:45 Urine Nitrate Negative (Negative) 08/15/24 19:45 Urine Bilirubin Negative (Negative) 08/15/24 19:45 Urine Urobilinogen 1.0 mg/dL (Negative) 08/15/24 19:45 Ur Leukocyte Esterase Trace (Negative) A 08/15/24 19:45 Urine RBC 3-5 /hpf (0-2) 08/15/24 19:45 Urine WBC 21-50 /hpf (0-5) H 08/15/24 19:45 Ur Squamous Epith Cells 0-5 /hpf (0-5) 08/15/24 19:45 Amorphous Sediment Not Reportable 08/15/24 19:45 Urine Bacteria 3+ /hpf (NONE) H 08/15/24 19:45 Hyaline Casts 4.95 /lpf 08/15/24 19:45 Vitals Last Vital Signs Temp 98.1 F 08/17/24 15:12 Pulse 69 08/17/24 15:12 Resp 17 08/17/24 15:12 BP 174/78 08/17/24 15:12 Pulse Ox 97 08/17/24 15:12 O2 Del Method Room Air 08/17/24 15:12 Discharge Plan Discharge Patient Disposition: Home Condition: Stable Prescriptions: New meclizine 25 mg Tablet 25 mg PO TID 30 Days Qty: 90 0RF diazepam 2 mg Tablet 1 mg PO Q8H PRN (Reason: Anxiety) 5 Days Qty: 15 0RF ondansetron 4 mg tablet,disintegrating 4 mg PO Q8H PRN (Reason: nausea and vomiting) 5 Days Qty: 14 0RF prednisone 10 mg tablet 40 mg PO DAILY 5 Days Qty: 42 0RF Continued citalopram 10 mg tablet 10 mg PO DAILY ezetimibe 10 mg tablet 10 mg PO DAILY nitroglycerin 0.4 mg tablet, sublingual 0.4 mg sublingual Q5M PRN (Reason: Chest Pain) Rx Instructions: do not exceed 3 doses per episode potassium chloride 10 mEq capsule, extended release 10 meq PO BID spironolactone 25 mg tablet 25 mg PO DAILY Ozempic 2 mg/dose (8 mg/3 mL) pen injector 2 mg SUBCUT Q7D celecoxib 200 mg capsule 200 mg PO DAILY aspirin [Tanya Aspirin] 325 mg Tablet 325 mg PO DAILY clopidogrel 75 mg tablet 75 mg PO DAILY pantoprazole 40 mg tablet,delayed release (DR/EC) 40 mg PO BID rosuvastatin 20 mg tablet 20 mg PO DAILY metoprolol tartrate 100 mg tablet 100 mg PO BID 30 Days Qty: 60 0RF Changed isosorbide mononitrate 60 mg tablet extended release 24 hr 60 mg PO DAILY 30 Days Qty: 30 0RF Held gabapentin 300 mg capsule 300 mg PO DAILY Hold Instructions: Resume on 08/24/24. Discharge Orders: Discharge Order (Routine); Ordered 08/17/24 Ordered By: Jennifer Deshpande Referrals: Ericka Wolfe MD [Primary Care Provider] - 08/18/24 10:15 am Ian Galvan MD [Physician] - 09/11/24 3:45 pm Discharge Diet: Usual diet Discharge Activity: Resume usual activity and Increase activity as tolerated Patient Instructions: Diazepam (By mouth), Prednisone (By mouth), Meclizine (By mouth), Ondansetron (By mouth), Vertigo (DC), Opioid Safety Discharge Attestations Time Spent in Discharge Care*: greater than 30 min Quality Metrics Clinical Quality Measures [ No reported AMI, CVA or VTE this stay] Coding Level of Care Code Acute Code for Chg Fwd Diagnoses S/P CABG x 2 Z95.1 GERD (gastroesophageal reflux disease) K21.9 Mixed hyperlipidemia E78.2 Hyperlipidemia type: mixed hyperlipidemia Ex-smoker Z87.891 Diabetes mellitus E11.9 Vertigo R42 Vertebral artery stenosis I65.09
== END 2024-08-17 16:45 | disposition home or self-care (01) | DRG 149 ==
LOC: ER 11:35 → MEDSURG 08-16 06:48
PROVIDERS: Internal Medicine; Admitting Provider Hospitalist; Emergency Provider Family Medicine; PCP Family Medicine; Visit Provider Student in an Organized Health Care Education/Training Program
DX: R42 Dizziness and giddiness (principal); K55.1 Chronic vascular disorders of intestine; I65.01 Occlusion and stenosis of right vertebral artery; R29.6 Repeated falls; K59.00 Constipation, unspecified; I10 Essential (primary) hypertension; E27.9 Disorder of adrenal gland, unspecified; K76.9 Liver disease, unspecified; I71.43 Infrarenal abdominal aortic aneurysm, without rupture; E78.2 Mixed hyperlipidemia; F32.A Depression, unspecified; K21.9 Gastro-esophageal reflux disease without esophagitis; J44.9 Chronic obstructive pulmonary disease, unspecified; I25.10 Atherosclerotic heart disease of native coronary artery without angina pectoris; E83.42 Hypomagnesemia; E11.42 Type 2 diabetes mellitus with diabetic polyneuropathy; G43.909 Migraine, unspecified, not intractable, without status migrainosus; Z79.85 Long-term (current) use of injectable non-insulin antidiabetic drugs; Z79.82 Long term (current) use of aspirin; Z79.02 Long term (current) use of antithrombotics/antiplatelets; Z86.74 Personal history of sudden cardiac arrest; Z95.5 Presence of coronary angioplasty implant and graft; Z95.1 Presence of aortocoronary bypass graft; Z86.0100 Personal history of colon polyps, unspecified; Z87.891 Personal history of nicotine dependence; Z86.73 Personal history of transient ischemic attack (TIA), and cerebral infarction without residual deficits; Z82.3 Family history of stroke; Z82.49 Family history of ischemic heart disease and other diseases of the circulatory system
CPT/HCPCS: 36415; 36416; 70450; 70553; 80048; 80053; 81001; 82962; 83735; 85025; 87086; 93005; 96372; 96374; 96375; 97110; 97116; 97162; 97167; 97530; 99285; G0378; J0696; J1650; J1885; J2060; J2405; J2919; J3475; J3480; J8597

== ENCOUNTER 2024-08-28 12:18 | Outpatient (RCR) | payer MEDICARE, MEDICAID, SELFPAY | END 2024-09-02 23:59 | disposition home or self-care (01) | LOC: SPT 12:18 | PROVIDERS: PCP Family Medicine; Visit Provider Internal Medicine | DX: R42 Dizziness and giddiness (principal) | CPT/HCPCS: 95992; 97161 ==

== ENCOUNTER 2024-09-03 06:00 | Outpatient (RCR) | payer MEDICARE, MEDICAID, SELFPAY | END 2024-10-03 23:59 | disposition home or self-care (01) | LOC: SPT 06:00 | PROVIDERS: PCP Family Medicine; Visit Provider Internal Medicine | DX: R42 Dizziness and giddiness (principal) | CPT/HCPCS: 95992; 97112 ==